=== PATIENT | male | born 1955 | race African-American/Black ===

== ENCOUNTER 2016-08-04 09:37 | Inpatient (IN) | payer MEDICAID ==
[2016-08-04] MEDS ORDERED: LISINOPRIL 10 MG TABLET PO ONE (11:01)
[2016-08-04] MEDS ORDERED: HYDROCHLOROTHIAZIDE 25 MG TABLET PO ONE (11:01)
[2016-08-04] MEDS ORDERED: IPRATROPIUM/ALBUTEROL 0.5-2.5 MG/3 ML AMPUL NEB ONE (11:01)
[2016-08-04 11:31] LABS: ABSOLUTE BASOPHILS # (AUTO) 0.1 10^3/uL (0.0-0.2); ABSOLUTE LYMPHOCYTES (AUTO) 1.1 10^3/uL (0.5-4.7); ABSOLUTE MONOCYTES (AUTO) 0.5 10^3/uL (0.1-1.4); BASOPHILS % (AUTO) 1.2 % (0-2); EOSINOPHILS % (AUTO) 0.2 % (0-6); HEMOGLOBIN 14.3 g/dL (13.5-17.0); HGB HCT DIFFERENCE -1.1; LYMPHOCYTES % (AUTO) 19.2 % (13-45); MEAN CORPUSCULAR HEMOGLOBIN 30.3 pg (27.0-33.4); MEAN CORPUSCULAR HGB CONC 32.5 g/dL (32.0-36.0); MEAN CORPUSCULAR VOLUME 93 fl (80-97); MONOCYTES % (AUTO) 9.4 % (3-13); RED BLOOD COUNT 4.73 10^6/uL (4.35-5.55); WHITE BLOOD COUNT 5.7 10^3/uL (4.0-10.5)
[2016-08-04 11:37] LABS: PROTHROMBIN TIME 13.4 SEC (11.4-15.4)
[2016-08-04 11:49] LABS: ALANINE AMINOTRANSFERASE 29 U/L (21-72); ALBUMIN 4.3 g/dL (3.5-5.0); ALKALINE PHOSPHATASE 88 U/L (38-126); ANION GAP 13 (5-19); ASPARTATE AMINO TRANSFERASE 29 U/L (17-59); BILIRUBIN,DIRECT 0.3 mg/dL (0.0-0.4); BILIRUBIN,TOTAL 0.8 mg/dL (0.2-1.3); BLOOD UREA NITROGEN 17 mg/dL (7-20); CALCIUM 9.3 mg/dL (8.4-10.2); CARBON DIOXIDE 34 mmol/L (22-30); CHLORIDE 97 mmol/L (98-107); CREATINE KINASE 107 U/L (55-170); CREATININE RESULT 1.32 mg/dL (0.52-1.25); GLUCOSE 106 mg/dL (75-110); LIPASE 23.6 U/L (23-300); POTASSIUM 3.7 mmol/L (3.6-5.0); SODIUM 143.7 mmol/L (137-145)
--- NOTE | 2016-08-04 11:55 | RADIOLOGY REPORT (SQ) ---
EXAM DESCRIPTION: CHEST PA/LAT COMPLETED DATE/TIME: 08/04/2016 11:44 am REASON FOR STUDY: cough COMPARISON: 04/06/2012 EXAM PARAMETERS: NUMBER OF VIEWS: two views TECHNIQUE: Digital Frontal and Lateral radiographic views of the chest acquired. RADIATION DOSE: NA LIMITATIONS: none FINDINGS: LUNGS AND PLEURA: Interstitial changes with Hannah B-lines. Fluid in the fissures. Perih ilar haziness. MEDIASTINUM AND HILAR STRUCTURES: No masses or contour abnormalities. HEART AND VASCULAR STRUCTURES: Heart upper normal in size. Ectatic aorta. BONES: No acute findings. HARDWARE: None in the chest. OTHER: No other significant finding. IMPRESSION: Interstitial pulmonary edema. TECHNICAL DOCUMENTATION: JOB ID: [id number] [employer]- All Rights Reserved
[2016-08-04 12:01] LABS: CREATINE KINASE MB 1.24 ng/mL (<4.55)
[2016-08-04 12:02] LABS: TROPONIN I 0.057 ng/mL
[2016-08-04] MEDS ORDERED: ASPIRIN 325 MG TABLET PO ONE (12:05)
--- NOTE | 2016-08-04 12:13 | ER Document Report ---
ED Medical Screen (RME) - General Chief Complaint: Abdominal Pain Stated Complaint: ABDOMINAL PAIN/COUGH Time Seen by Provider: 08/04/16 10:57 TRAVEL OUTSIDE OF THE [place] IN LAST 30 DAYS: No - HPI Patient complains to provider of: Coughing epigastric pain Notes: 08/04/16 12:10 Patient presents today with coughing epigastric pain. Patient also states elevated blood pressure. Patient states he has been without blood pressure medications for "quite some time." Denies chest pain - Related Data Allergies/Adverse Reactions: No Known Allergies Allergy (Verified 08/04/16 09:41) Past Medical History - Social History Frequency of alcohol use: None Drug Abuse: None - Past Medical History Cardiac Medical History: Reports: Hx Hypertension - stopped medication 2007 could not afford f/u appt or medication Pulmonary Medical History: Denies: Hx Asthma Renal/ Medical History: Denies: Hx Peritoneal Dialysis Musculoskeltal Medical History: Reports Hx Arthritis Past Surgical History: Reports: Hx Orthopedic Surgery - Immunizations Immunizations up to date: Yes Hx Diphtheria, Pertussis, Tetanus Vaccination: No Review of Systems - Review of Systems Constitutional: No symptoms reported EENT: No symptoms reported Cardiovascular: No symptoms reported Respiratory: Cough Gastrointestinal: Abdominal pain Genitourinary: No symptoms reported Male Genitourinary: No symptoms reported Musculoskeletal: No symptoms reported Skin: No symptoms reported Hematologic/Lymphatic: No symptoms reported Neurological/Psychological: No symptoms reported Physical Exam - Vital signs Vitals: Temp Pulse Resp BP Pulse Ox 98.2 F 97 20 213/117 H 100 08/04/16 09:41 08/04/16 09:41 08/04/16 09:41 08/04/16 09:41 08/04/16 09:41 Interpretation: Normal - General General appearance: Appears well, Alert - HEENT Head: Normocephalic, Atraumatic Eyes: Normal Pupils: PERRL - Respiratory Respiratory status: No respiratory distress Chest status: Nontender Breath sounds: Wheezing Chest palpation: Normal - Cardiovascular Rhythm: Regular Heart sounds: Normal auscultation Murmur: No - Abdominal Inspection: Normal Distension: No distension Bowel sounds: Normal Tenderness: Nontender Organomegaly: No organomegaly - Back Back: Normal, Nontender - Extremities General upper extremity: Normal inspection, Nontender, Normal color, Normal ROM , Normal temperature General lower extremity: Normal inspection, Nontender, Normal color, Normal ROM , Normal temperature, Normal weight bearing. No: Eunice's sign - Neurological Neuro grossly intact: Yes Cognition: Normal Orientation: AAOx4 Nicola Coma Scale Eye Opening: Spontaneous [place] Coma Scale Verbal: Oriented [place] Coma Scale Motor: Obeys Commands Nicola Coma Scale Total: 15 Speech: Normal Motor strength normal: LUE, RUE, LLE, RLE Sensory: Normal - Psychological Associated symptoms: Normal affect, Normal mood - Skin Skin Temperature: Warm Skin Moisture: Dry Skin Color: Normal Course - Re-evaluation Re-evalutation: 08/04/16 12:12 Patient was given his lisinopril hydrochlorothiazide. Prescribed. Chest x-ray shows curly B lines possible new onset of CHF. Patient does have mildly elevated troponin will send to the meantime for further evaluation. Notified by nursing staff upon movement that the patient was hypoxic. Patient seem to be asymptomatic this is new compared to his arrival oxygen saturation of 100%. - Vital Signs Vital signs: Temp Pulse Resp BP Pulse Ox 98.4 F 85 22 H 204/112 H 86 L 08/04/16 12:03 08/04/16 12:03 08/04/16 12:03 08/04/16 12:03 08/04/16 12:03 - Laboratory Result Diagrams: 08/04/16 11:16 08/04/16 11:16 Laboratory results interpreted by me: 08/04/16 08/04/16 11:16 11:16 RDW 15.0 H Plt Count 129 L Chloride 97 L Carbon Dioxide 34 H Creatinine 1.32 H Est GFR (Non-Af Amer) 55 L
[2016-08-04] MEDS ORDERED: NITROGLYCERIN 2% OINTMENT 1 GM PACKET TP ONE (12:31)
--- NOTE | 2016-08-04 12:31 | ER Document Report ---
ED Cardiac - General Chief Complaint: Abdominal Pain Stated Complaint: ABDOMINAL PAIN/COUGH Time Seen by Provider: 08/04/16 10:57 Mode of Arrival: Ambulatory Information source: Patient TRAVEL OUTSIDE OF THE [place] IN LAST 30 DAYS: No - HPI Patient complains to provider of: Shortness of breath Was the onset of pain: Gradual When did pain begin: SEVERAL DAYS Is the pain a: New problem Chest pain location: Other - XIPHOID AREA Quality of pain: Pressure Chest pain radiation location: None Severity now: None Severity at worst: Mild Chest pain precipitating factors: Physical Exertion - Related Data Allergies/Adverse Reactions: No Known Allergies Allergy (Verified 08/04/16 09:41) Past Medical History - Social History Smoking Status: Current Every Day Smoker Cigarette use (# per day): Yes Chew tobacco use (# tins/day): No Frequency of alcohol use: None Drug Abuse: None Lives with: Family Family History: Reviewed & Not Pertinent Patient has suicidal ideation: No Patient has homicidal ideation: No - Past Medical History Cardiac Medical History: Reports: Hx Hypertension - stopped medication 2007 could not afford f/u appt or medication Pulmonary Medical History: Denies: Hx Asthma Renal/ Medical History: Denies: Hx Peritoneal Dialysis Musculoskeltal Medical History: Reports Hx Arthritis Past Surgical History: Reports: Hx Orthopedic Surgery - Immunizations Immunizations up to date: Yes Hx Diphtheria, Pertussis, Tetanus Vaccination: No Physical Exam - Vital signs Vitals: Temp Pulse Resp BP Pulse Ox 98.2 F 97 20 213/117 H 100 08/04/16 09:41 08/04/16 09:41 08/04/16 09:41 08/04/16 09:41 08/04/16 09:41 Interpretation: Hypertensive - General General appearance: Appears well, Alert In distress: None - HEENT Head: Normocephalic Eyes: Normal Conjunctiva: Normal Ears: Normal Nasal: Normal Mouth/Lips: Normal Mucous membranes: Normal Neck: Normal - Respiratory Respiratory status: No respiratory distress Chest status: Nontender Breath sounds: Rales - FEW, BIBASILAR - Cardiovascular Rhythm: Regular Heart sounds: Normal auscultation Murmur: No - Abdominal Inspection: Normal Distension: No distension Bowel sounds: Normal Tenderness: Nontender - Extremities General upper extremity: Normal inspection General lower extremity: Normal inspection. No: Edema - Neurological Neuro grossly intact: Yes Cognition: Normal Orientation: AAOx4 - Psychological Associated symptoms: Normal affect, Normal mood - Skin Skin Temperature: Warm Skin Moisture: Dry Skin Color: Normal Skin Turgor: Elastic Course - Vital Signs Vital signs: Temp Pulse Resp BP Pulse Ox 98.4 F 85 12 216/126 H 90 L 08/04/16 12:03 08/04/16 12:03 08/04/16 12:48 08/04/16 12:48 08/04/16 12:51 - Laboratory Result Diagrams: 08/04/16 11:16 08/04/16 11:16 Laboratory results interpreted by me: 08/04/16 08/04/16 11:16 11:16 RDW 15.0 H Plt Count 129 L Chloride 97 L Carbon Dioxide 34 H Creatinine 1.32 H Est GFR (Non-Af Amer) 55 L - Diagnostic Test Radiology reviewed: Image reviewed, Reports reviewed - EKG Interpretation by Me EKG shows normal: Sinus rhythm. abnormal: QRS Complexes - RVH VOLTAGE, ST-T Waves - BORDERLINE LONG QT Rate: Normal Rhythm: NSR Hale/QRS: RBBB, LAHB/LAFB When compared to previous EKG there are: Previous EKG unavailable - Consults DR. MARTINEZ Time consulted: 13:45 Consulted provider: will come to ER Discharge - Discharge Clinical Impression: Hypertensive urgency Condition: Stable Disposition: ADMITTED INPATIENT Admitting Provider: Hospitalist Unit Admitted: ICU
[2016-08-04] MEDS ORDERED: LABETALOL HCL INJ 20 MG/4 ML DISP.SYRIN IV ONE ×2 (12:39→13:10)
[2016-08-04] MEDS ORDERED: GUAIFENESIN SYRP 200 MG/10 ML UDC PO PRN (14:34)
[2016-08-04] MEDS ORDERED: ALBUTEROL SULFATE HFA (90 MCG/PUFF) 200 PUFF/8.5 GM MDI IH PRN (14:34)
[2016-08-04] MEDS ORDERED: ENOXAPARIN SODIUM INJ 30 MG/0.3 ML DISP.SYRIN SUBCUT ONE (15:00)
[2016-08-04] MEDS ORDERED: METHYLPREDNISOLONE INJ 40 MG/1 ML SDV IV ONE (15:00)
[2016-08-04 15:10] LABS: URINE BARBITURATES SCREEN NEGATIVE; URINE METHADONE SCREEN NEGATIVE; URINE OPIATES LOW NEGATIVE; URINE PHENCYCLIDINE SCREEN NEGATIVE
[2016-08-04 15:16] LABS: APPEARANCE,URINE CLEAR; BILIRUBIN,URINE NEGATIVE (NEGATIVE); GLUCOSE, URINE NEGATIVE (NEGATIVE); KETONES,URINE NEGATIVE (NEGATIVE); LEUKOCYTE ESTERASE,URINE NEGATIVE (NEGATIVE); NITRITE,URINE NEGATIVE (NEGATIVE); PROTEIN,URINE NEGATIVE (NEGATIVE); URINE SPECIFIC GRAVITY 1.008; UROBILINOGEN,URINE NEGATIVE mg/dL (<2.0)
[2016-08-04 15:21] LABS: BACTERIA,URINE TRACE /HPF; WBC,URINE 0-1 /HPF
--- NOTE | 2016-08-04 15:38 | RADIOLOGY REPORT (SQ) ---
EXAM DESCRIPTION: CT HEAD WITHOUT COMPLETED DATE/TIME: 08/04/2016 3:17 pm REASON FOR STUDY: hypertensive emergency with headache COMPARISON: None. TECHNIQUE: Axial images acquired through the brain without intravenous contrast. Images reviewed wi th bone, brain and subdural windows. Images stored on PACS. All CT scanners at this facility use dose modulation, iterative reconstruction, and/or weight based d osing when appropriate to reduce radiation dose to as low as reasonably achievable (ALARA). [facility]: Dose Right [facility]: CareDose [facility]: Dose Right [facility]: Teradose 4D [facility]: [employer] RADIATION DOSE: Up-to-date CT equipment and radiation dose reduction techniques were employed. CTDIv ol: 64.6 mGy. DLP: 1163 mGy-cm. mGy. LIMITATIONS: None. FINDINGS: VENTRICLES: Normal size and contour. CEREBRUM: No masses. No hemorrhage. No midline shift. Normal hogan/white matter differentiation. N o evidence for acute infarction. CEREBELLUM: No masses. No hemorrhage. No alteration of density. No evidence for acute infarction. EXTRAAXIAL SPACES: No fluid collections. No masses. ORBITS AND GLOBE: No intra- or extraconal masses. Normal contour of globe without masses. CALVARIUM: No fracture. PARANASAL SINUSES: Chronic left maxillary sinus disease. SOFT TISSUES: No mass or hematoma. OTHER: No other significant finding. IMPRESSION: No acute intracranial process. Chronic left maxillary sinus disease. TECHNICAL DOCUMENTATION: JOB ID: [id number] Quality ID # [id number]: Final reports with documentation of one or more dose reduction techniques (e.g., Au tomated exposure control, adjustment of the mA and/or kV according to patient size, use of iterative reconstruction technique) 2010 [employer]- All Rights Reserved
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
[2016-08-04] MEDS: HYDRALAZINE HCL INJ/PF 20 MG/1 ML SDV IV PRN (16:42)
[2016-08-04] MEDS: ACETAMINOPHEN 325 MG TABLET PO PRN (16:42)
[2016-08-04] MEDS: NYSTATIN 500000 UNIT/5 ML UDCUP PO SCH ×2 (17:26→21:48)
--- NOTE | 2016-08-04 17:29 | EKG REPORT ---
SEVERITY:- ABNORMAL ECG - SINUS RHYTHM INCOMPLETE RBBB AND LAFB CONSIDER RIGHT VENTRICULAR HYPERTROPHY BORDERLINE PROLONGED QT INTERVAL : Confirmed by: Pierre Tinoco 04-Aug-2016 17:28:51
[2016-08-04] MEDS: IPRATROPIUM/ALBUTEROL 0.5-2.5 MG/3 ML AMPUL NEB SCH (20:32)
[2016-08-04] MEDS: METHYLPREDNISOLONE INJ 40 MG/1 ML SDV IV SCH (21:46)
[2016-08-04] MEDS: GUAIFENESIN 600 MG TABLET.SA PO SCH (21:46)
[2016-08-04] MEDS: LISINOPRIL 10 MG TABLET PO SCH (21:48)
[2016-08-05 04:00] LABS: HEMOGLOBIN 13.1 g/dL (13.5-17.0); HGB HCT DIFFERENCE -0.7; MEAN CORPUSCULAR HEMOGLOBIN 30.1 pg (27.0-33.4); MEAN CORPUSCULAR HGB CONC 32.9 g/dL (32.0-36.0); MEAN CORPUSCULAR VOLUME 92 fl (80-97); RED BLOOD COUNT 4.36 10^6/uL (4.35-5.55); RED CELL DISTRIBUTION WIDTH 14.5 % (11.5-14.0); WHITE BLOOD COUNT 3.3 10^3/uL (4.0-10.5)
[2016-08-05 04:04] LABS: ANION GAP 10 (5-19); BLOOD UREA NITROGEN 19 mg/dL (7-20); CALCIUM 9.2 mg/dL (8.4-10.2); CARBON DIOXIDE 34 mmol/L (22-30); CHLORIDE 93 mmol/L (98-107); CREATININE RESULT 1.28 mg/dL (0.52-1.25); GLUCOSE 141 mg/dL (75-110); POTASSIUM 3.3 mmol/L (3.6-5.0); SODIUM 137.3 mmol/L (137-145)
[2016-08-05 04:13] LABS: BAND NEUTROPHILS % (MANUAL) 2 % (3-5); BASOPHILS % (MANUAL) 0 % (0-2); EOSINOPHILS % (MANUAL) 0 % (0-6); LYMPHOCYTES % (MANUAL) 20 % (13-45); TOTAL CELLS COUNTED 100
[2016-08-05 04:15] LABS: ANISOCYTOSIS SLIGHT; PLATELET CLUMPS PRESENT; POIKILOCYTOSIS SLIGHT
[2016-08-05] MEDS: METHYLPREDNISOLONE INJ 40 MG/1 ML SDV IV SCH ×3 (05:51→22:39)
[2016-08-05] MEDS: HYDRALAZINE HCL INJ/PF 20 MG/1 ML SDV IV PRN ×2 (05:57→13:12)
[2016-08-05] MEDS: LISINOPRIL 10 MG TABLET PO SCH (06:44)
[2016-08-05] MEDS: IPRATROPIUM/ALBUTEROL 0.5-2.5 MG/3 ML AMPUL NEB SCH ×3 (08:27→20:25)
[2016-08-05] MEDS: ENOXAPARIN SODIUM INJ 30 MG/0.3 ML DISP.SYRIN SUBCUT SCH (09:59)
[2016-08-05] MEDS: FLUTICASONE NASAL SPRAY 50 MCG/SPRY 120 SPRAY/16 GM NASL SCH ×2 (10:00→22:39)
[2016-08-05] MEDS: HYDROCHLOROTHIAZIDE 25 MG TABLET PO SCH (10:01)
[2016-08-05] MEDS: GUAIFENESIN 600 MG TABLET.SA PO SCH ×2 (10:02→22:40)
[2016-08-05] MEDS: NYSTATIN 500000 UNIT/5 ML UDCUP PO SCH ×4 (10:02→22:40)
[2016-08-05 10:25] LABS: CHOLESTEROL 187.45 mg/dL (0-200); Direct HDL 47 mg/dL (>40); TRIGLYCERIDES 72 mg/dL (<150)
[2016-08-05 10:36] LABS: DIRECT LDL 110 mg/dL (<100)
[2016-08-05] MEDS ORDERED: BENZONATATE 100 MG CAPSULE PO PRN (10:54)
[2016-08-05] MEDS ORDERED: LISINOPRIL 10 MG TABLET PO ONE (11:30)
--- NOTE | 2016-08-05 11:37 | RADIOLOGY REPORT (SQ) ---
EXAM DESCRIPTION: CHEST PA/LAT COMPLETED DATE/TIME: 08/05/2016 11:17 am REASON FOR STUDY: pna COMPARISON: 08/04/2016 EXAM PARAMETERS: NUMBER OF VIEWS: two views TECHNIQUE: Digital Frontal and Lateral radiographic views of the chest acquired. RADIATION DOSE: NA LIMITATIONS: none FINDINGS: LUNGS AND PLEURA: No opacities, masses or pneumothorax. No pleural effusion. MEDIASTINUM AND HILAR STRUCTURES: No masses or contour abnormalities. HEART AND VASCULAR STRUCTURES: Heart normal size. No evidence for failure. BONES: No acute findings. HARDWARE: None in the chest. OTHER: No other significant finding. IMPRESSION: NO SIGNIFICANT RADIOGRAPHIC FINDING IN THE CHEST. TECHNICAL DOCUMENTATION: JOB ID: [id number] [employer]- All Rights Reserved
[2016-08-05] MEDS ORDERED: FUROSEMIDE 20 MG TABLET PO ONE (12:00)
[2016-08-05] MEDS ORDERED: AMLODIPINE BESYLATE 10 MG TABLET PO ONE (12:00)
--- NOTE | 2016-08-05 15:04 | PDOC PROGRESS REPORT ---
Subjective Progress Note for:: 08/05/16 Subjective:: Patient complains of cough. He feels like he can't cough anything up. Patient reports that he feels better than yesterday. He denies chest pain, headache, diplopia, nausea, vomiting, diarrhea, constipation, focal weakness. Physical Exam Vital Signs: Temp Pulse Resp BP Pulse Ox 97.7 F 77 19 190/90 H 100 08/05/16 04:49 08/05/16 07:00 08/05/16 04:49 08/05/16 06:35 08/05/16 04:49 Intake & Output 08/04/16 08/05/16 08/06/16 06:59 06:59 06:59 Intake Total 417 Balance 417 Weight 67.4 kg Exam: GENERAL: A+Ox3, NAD HEENT: Conjunctiva clear, nonicteric, moist mucous membranes, no JVD, midline trachea RESPIRATORY: Crackles bilateral bases, occasional rhonchi CARDIAC: Regular rate and rhythm, no gallops/rubs; +SM ABDOMEN: Soft, nondistended, NTTP, positive bowel sounds, no rebound, no guarding EXTREMETIES: no cyanosis, edema; mild clubbing NEUROLOGIC: Alert, oriented to person/place, CN's grossly intact, no focal deficits; mild cognitive impairment SKIN: No rash, lesion PSYCH: Normal mood, normal affect Results Laboratory Results: 08/05/16 03:40 08/05/16 03:40 08/04/16 08/05/16 08/05/16 14:50 03:40 03:40 WBC 3.3 L RBC 4.36 Hgb 13.1 L Hct 40.0 MCV 92 MCH 30.1 MCHC 32.9 RDW 14.5 H Plt Count 117 L Seg Neutrophils % Not Reportable Lymphocytes % Not Reportable Monocytes % Not Reportable Eosinophils % Not Reportable Basophils % Not Reportable Absolute Neutrophils Not Reportable Absolute Lymphocytes Not Reportable Absolute Monocytes Not Reportable Absolute Eosinophils Not Reportable Absolute Basophils Not Reportable Sodium 137.3 Potassium 3.3 L Chloride 93 L Carbon Dioxide 34 H Anion Gap 10 BUN 19 Creatinine 1.28 H Est GFR ( Amer) > 60 Est GFR (Non-Af Amer) 57 L Glucose 141 H Calcium 9.2 Urine Color STRAW Urine Appearance CLEAR Urine pH 6.0 Ur Specific [place] 1.008 Urine Protein NEGATIVE Urine Glucose (UA) NEGATIVE Urine Ketones NEGATIVE Urine Blood MODERATE H Urine Nitrite NEGATIVE Ur Leukocyte Esterase NEGATIVE Ur Squamous Epith Cells RARE 08/04/16 08/04/16 08/05/16 15:38 21:49 03:40 Troponin I 0.065 0.060 0.046 Impressions: Head CT 08/04/16 00:00 IMPRESSION: No acute intracranial process. Chronic left maxillary sinus disease. Chest X-Ray 08/04/16 11:00 IMPRESSION: Interstitial pulmonary edema. Assessment & Plan - Diagnosis (1) COPD with exacerbation Is this a current diagnosis for this admission?: YesPlan: Scheduled nebulized treatments Continue Solumedrol Azithromycin Sputum Culture pending Inspo and flutter (2) Hypertensive emergency without congestive heart failure Is this a current diagnosis for this admission?: YesPlan: Suspect long standing untreated hypertension. 2g sodium restricted diet. Patient education for HTN. Cardiac enzymes are indeterminate. Hydralazine IV prn SBP>180. Monitor on telemetry Suspect subclavian steal as patient has a mildly atrophic right arm and a 30 point difference in blood pressure. Generic Name Dose Route Start Last Admin Trade Name Freq PRN Reason Stop Dose Admin Hydralazine HCl 10 mg 08/04/16 14:50 08/05/16 13:12 Apresoline Inj/Pf 20 Mg/1 Ml Sdv IV 09/03/16 14:49 10 mg Q4HP PRN sbp>165 Amlodipine Besylate 10 mg 08/06/16 10:00 Norvasc 10 Mg Tablet PO 09/05/16 09:59 DAILY JESSICA Lisinopril 40 mg 08/06/16 10:00 Prinivil 10 Mg Tablet PO 09/05/16 09:59 DAILY JESSICA Hydrochlorothiazide 25 mg 08/05/16 10:00 08/05/16 10:01 Hydrodiuril 25 Mg Tablet PO 09/04/16 09:59 25 mg DAILY JESSICA (3) Acute hypoxemic respiratory failure Is this a current diagnosis for this admission?: YesPlan: Oxygen to maintain saturation greater than 93% (4) Tobacco abuse Is this a current diagnosis for this admission?: YesPlan: Encourage cessation Offer nicotine patch (5) Headache Qualifiers: Headache type: unspecified Headache chronicity pattern: acute headache Intractability: not intractable Qualified Code(s): R51 - Headache Is this a current diagnosis for this admission?: YesPlan: Resolved He had a head is negative for acute in infarction. Headache improved tylenol prn (6) Oral candidiasis Is this a current diagnosis for this admission?: YesPlan: Improving on nystatin (7) Stage 3 chronic kidney disease due to benign hypertension Is this a current diagnosis for this admission?: YesPlan: Renally adjust medications. Consistent with creatinine over the past 4 years (8) Hyperlipidemia LDL goal <100 Is this a current diagnosis for this admission?: YesPlan: Patient on Zocor 10 mg p.o. nightly (9) Prediabetes Is this a current diagnosis for this admission?: YesPlan: Have counseled patient on improving diet. Recommend repeat labs in 3-6 months. - Time Time Spent with patient: 25-34 minutes
[2016-08-05] MEDS ORDERED: LISINOPRIL 10 MG TABLET PO SCH (18:00)
[2016-08-05] MEDS: SIMVASTATIN 10 MG TABLET PO SCH (22:40)
[2016-08-06] MEDS: METHYLPREDNISOLONE INJ 40 MG/1 ML SDV IV SCH ×3 (05:31→21:11)
[2016-08-06 07:58] LABS: ABSOLUTE LYMPHOCYTES (AUTO) 0.7 10^3/uL (0.5-4.7); ABSOLUTE MONOCYTES (AUTO) 0.3 10^3/uL (0.1-1.4); ABSOLUTE NEUT (AUTO) 5.8 10^3/uL (1.7-8.2); BASOPHILS % (AUTO) 0.6 % (0-2); HEMATOCRIT 45.5 % (37.9-51.0); HGB HCT DIFFERENCE -0.5; LYMPHOCYTES % (AUTO) 10.1 % (13-45); MEAN CORPUSCULAR HEMOGLOBIN 30.4 pg (27.0-33.4); MEAN CORPUSCULAR HGB CONC 32.9 g/dL (32.0-36.0); MEAN CORPUSCULAR VOLUME 92 fl (80-97); MONOCYTES % (AUTO) 3.7 % (3-13); RED BLOOD COUNT 4.92 10^6/uL (4.35-5.55); RED CELL DISTRIBUTION WIDTH 14.4 % (11.5-14.0); SEGMENTED NEUTROPHILS % (AUTO) 85.6 % (42-78)
[2016-08-06 08:03] LABS: WHITE BLOOD COUNT 6.8 10^3/uL (4.0-10.5)
[2016-08-06] MEDS: ACETAMINOPHEN 325 MG TABLET PO PRN (08:13)
[2016-08-06] MEDS: HYDRALAZINE HCL INJ/PF 20 MG/1 ML SDV IV PRN (08:14)
[2016-08-06 08:26] LABS: ANION GAP 14 (5-19); BLOOD UREA NITROGEN 25 mg/dL (7-20); CALCIUM 9.9 mg/dL (8.4-10.2); CARBON DIOXIDE 38 mmol/L (22-30); CHLORIDE 84 mmol/L (98-107); CREATININE RESULT 1.51 mg/dL (0.52-1.25); GLUCOSE 144 mg/dL (75-110); POTASSIUM 3.5 mmol/L (3.6-5.0); SODIUM 136.2 mmol/L (137-145)
[2016-08-06] MEDS: IPRATROPIUM/ALBUTEROL 0.5-2.5 MG/3 ML AMPUL NEB SCH ×3 (08:28→20:49)
[2016-08-06] MEDS: NYSTATIN 500000 UNIT/5 ML UDCUP PO SCH ×4 (09:12→21:11)
[2016-08-06] MEDS: FLUTICASONE NASAL SPRAY 50 MCG/SPRY 120 SPRAY/16 GM NASL SCH ×2 (09:12→21:11)
[2016-08-06] MEDS: HYDROCHLOROTHIAZIDE 25 MG TABLET PO SCH (09:12)
[2016-08-06] MEDS: POTASSIUM CHLORIDE 10 MEQ TABLET.SA PO SCH (09:12)
[2016-08-06] MEDS: GUAIFENESIN 600 MG TABLET.SA PO SCH ×2 (09:12→21:11)
[2016-08-06] MEDS: AMLODIPINE BESYLATE 10 MG TABLET PO SCH (09:12)
[2016-08-06] MEDS: LISINOPRIL 10 MG TABLET PO SCH (09:12)
[2016-08-06] MEDS: ENOXAPARIN SODIUM INJ 30 MG/0.3 ML DISP.SYRIN SUBCUT SCH (09:12)
[2016-08-06] MEDS ORDERED: METHYLPREDNISOLONE INJ 40 MG/1 ML SDV IV ONE (11:30)
[2016-08-06] MEDS ORDERED: CARVEDILOL 12.5 MG TABLET PO ONE (11:30)
--- NOTE | 2016-08-06 14:19 | XCELERA REPORT ---
[address] [address] Transthoracic Echocardiogram Report Name: PANKAJ SORTO Age: 61 yrs Gender: Male : 1955 Patient Status: Inpatient Patient Location: [id number]\317\[id number] Study Date: 08/06/2016 11:26 AM Height: 67 in Weight: 148 lb BSA: 1.8 m2 Procedure: A two-dimensional transthoracic echocardiogram with color flow and Doppler was performed. Study Quality: Fair. Reason For Study: HYPERTENSION History: HYPERTENSION. Ordering Physician: CARLA HAILE Performed By: Katya Gandhi Interpretation Summary The left ventricle is normal in size. Mild to moderate KIARA , but no 'JH' or LVOT obstruction.Hence no IHSS. LV EF is 65% Left ventricular systolic function is normal. Doppler measurements suggest impaired left ventricular relaxation, which is associated with grade I/IV or mild diastolic dysfunction The left ventricular wall motion is normal. There is no thrombus. There is no ventricular septal defect visualized. The right ventricle is grossly normal size. The left atrial size is normal. The interatrial septum is intact with no evidence for an atrial septal defect. There is no mitral valve stenosis. There is no evidence of mitral valve prolapse. There is no vegetation seen on the mitral valve. There is no mitral regurgitation noted. There is no aortic valvular vegetation. There is no aortic valve stenosis There is no LVOT obstruction. There is a trace amount of aortic regurgitation There is no tricuspid stenosis. There is a trace amount of tricuspid regurgitation Unablle to calculate RVSP due to insufficient TR jet. The aortic root is mildly dilated There is no pericardial effusion. MMode/2D Measurements \T\ Calculations RVDd: 3.0 cm LVIDd: 4.6 cmFS: 37.3 % Ao root diam: 3.9 cm IVSd: 1.3 cm LVIDs: 2.9 cmEDV(Teich): 96.0 ml LVPWd: 1.4 cmESV(Teich): 31.4 ml Ao root area: 11.9 cm2 EF(Teich): 67.3 % LA dimension: 3.7 cm LVOT diam: 2.3 cm LVOT area: 4.3 cm2 Doppler Measurements \T\ Calculations MV E max yasmine: MV P1/2t max yasmine: Ao V2 max: LV V1 max P.2 cm/sec 65.2 cm/sec 162.6 cm/sec 6.1 mmHg MV A max yasmine: MV P1/2t: 55.3 msec Ao max PG: LV V1 max: 97.7 cm/sec MVA(P1/2t): 4.0 cm2 10.6 mmHg 123.4 cm/sec MV E/A: 0.67 MV dec slope: REY(V,D): 3.2 cm2 345.3 cm/sec2 PA V2 max: 108.1 cm/sec PA max P.7 mmHg Left Ventricle The left ventricle is normal in size. Mild to moderate KIARA , but no 'JH' or LVOT obstruction.Hence no IHSS. LV EF is 65%. Left ventricular systolic function is normal. Doppler measurements suggest impaired left ventricular relaxation, which is associated with grade I/IV or mild diastolic dysfunction. The left ventricular wall motion is normal. There is no thrombus. There is no ventricular septal defect visualized. Right Ventricle The right ventricle is grossly normal size. Atria The right atrium is normal. The left atrial size is normal. The interatrial septum is intact with no evidence for an atrial septal defect. Mitral Valve There is no evidence of mitral valve prolapse. There is no vegetation seen on the mitral valve. There is no mitral valve stenosis. There is no mitral regurgitation noted. Aortic Valve There is no aortic valvular vegetation. There is no aortic valve stenosis. There is no LVOT obstruction. There is a trace amount of aortic regurgitation. Tricuspid Valve There is no tricuspid stenosis. There is a trace amount of tricuspid regurgitation. Unablle to calculate RVSP due to insufficient TR jet. Pulmonic Valve There is no pulmonic valvular stenosis. There is no pulmonic valvular regurgitation. Great Vessels The aortic root is mildly dilated. Effusions There is no pericardial effusion. : CALRA HAILE > Celeste Resendez
--- NOTE | 2016-08-06 15:37 | PDOC PROGRESS REPORT ---
Subjective Progress Note for:: 08/06/16 Physical Exam Vital Signs: Temp Pulse Resp BP Pulse Ox 97.8 F 87 17 159/91 H 98 08/06/16 04:35 08/06/16 07:00 08/06/16 04:35 08/06/16 04:35 08/06/16 04:35 Intake & Output 08/05/16 08/06/16 08/07/16 06:59 06:59 06:59 Intake Total 417 757 Balance 417 757 Weight 67.4 kg 67.5 kg Exam: GENERAL: A+Ox3, NAD HEENT: Conjunctiva clear, nonicteric, moist mucous membranes, no JVD, midline trachea RESPIRATORY: Bilateral end expiratory wheezes, crackles CARDIAC: Regular rate and rhythm, no gallops/rubs; +SM ABDOMEN: Soft, nondistended, NTTP, positive bowel sounds, no rebound, no guarding EXTREMETIES: no cyanosis, edema; mild clubbing NEUROLOGIC: Alert, oriented to person/place, CN's grossly intact, no focal deficits; mild cognitive impairment SKIN: No rash, lesion PSYCH: Normal mood, normal affect Results Laboratory Results: 08/05/16 03:40 08/05/16 03:40 08/05/16 03:40 Triglycerides 72 Cholesterol 187.45 LDL Cholesterol Direct 110 H VLDL Cholesterol 14.0 HDL Cholesterol 47 08/04/16 08/04/16 08/05/16 15:38 21:49 03:40 Troponin I 0.065 0.060 0.046 Impressions: Head CT 08/04/16 00:00 IMPRESSION: No acute intracranial process. Chronic left maxillary sinus disease. Chest X-Ray 08/05/16 00:00 IMPRESSION: NO SIGNIFICANT RADIOGRAPHIC FINDING IN THE CHEST. Assessment & Plan - Diagnosis (1) COPD with exacerbation Is this a current diagnosis for this admission?: YesPlan: Scheduled nebulized treatments Cannot tolerate decrease and Solu-Medrol yesterday. He continues to be quite short of breath particularly upon ambulation. Continue Solumedrol IV and give additional 40 mg IV now. Azithromycin #3 Sputum Culture pending Inspo and flutter (2) Hypertensive emergency without congestive heart failure Is this a current diagnosis for this admission?: YesPlan: Improved control. Currently on Norvasc, hydrochlorothiazide, lisinopril, and will add Coreg today. Suspect long standing untreated hypertension. 2g sodium restricted diet. Patient education for HTN. Cardiac enzymes are indeterminate. Hydralazine IV prn SBP>165. Monitor on telemetry Suspect subclavian steal as patient has a mildly atrophic right arm and a 30 point difference in blood pressure. (3) Acute hypoxemic respiratory failure Is this a current diagnosis for this admission?: YesPlan: Oxygen to maintain saturation greater than 93% (4) Tobacco abuse Is this a current diagnosis for this admission?: YesPlan: Encourage cessation Offer nicotine patch (5) Headache Qualifiers: Headache type: unspecified Headache chronicity pattern: acute headache Intractability: not intractable Qualified Code(s): R51 - Headache Is this a current diagnosis for this admission?: YesPlan: Resolved He had a head is negative for acute in infarction. Headache improved tylenol prn (6) Oral candidiasis Is this a current diagnosis for this admission?: YesPlan: Improving on nystatin (7) Stage 3 chronic kidney disease due to benign hypertension Is this a current diagnosis for this admission?: YesPlan: Renally adjust medications. Consistent with creatinine over the past 4 years (8) Hyperlipidemia LDL goal <100 Is this a current diagnosis for this admission?: YesPlan: Patient on Zocor 10 mg p.o. nightly. CPK given patient's report of difficulty ambulating to the bathroom. (9) Prediabetes Is this a current diagnosis for this admission?: YesPlan: Have counseled patient on improving diet. Recommend repeat labs in 3-6 months. - Time Time Spent with patient: 25-34 minutes Medications reviewed and adjusted accordingly: Yes Anticipated discharge: Home Within: within 24 hours, within 48 hours
[2016-08-06] MEDS: SIMVASTATIN 10 MG TABLET PO SCH (21:11)
[2016-08-06] MEDS: CARVEDILOL 12.5 MG TABLET PO SCH (21:11)
[2016-08-07] MEDS: METHYLPREDNISOLONE INJ 40 MG/1 ML SDV IV SCH (06:03)
[2016-08-07] MEDS: IPRATROPIUM/ALBUTEROL 0.5-2.5 MG/3 ML AMPUL NEB SCH ×2 (08:01→13:47)
[2016-08-07 09:46] LABS: ANION GAP 13 (5-19); BLOOD UREA NITROGEN 41 mg/dL (7-20); CALCIUM 9.4 mg/dL (8.4-10.2); CARBON DIOXIDE 37 mmol/L (22-30); CHLORIDE 83 mmol/L (98-107); CREATININE RESULT 1.77 mg/dL (0.52-1.25); GLUCOSE 109 mg/dL (75-110); POTASSIUM 3.6 mmol/L (3.6-5.0); SODIUM 133.2 mmol/L (137-145)
[2016-08-07] MEDS ORDERED: PREDNISONE 20 MG TABLET PO SCH (10:00)
[2016-08-07] MEDS: ENOXAPARIN SODIUM INJ 30 MG/0.3 ML DISP.SYRIN SUBCUT SCH (10:10)
[2016-08-07] MEDS: GUAIFENESIN 600 MG TABLET.SA PO SCH (10:10)
[2016-08-07] MEDS: NYSTATIN 500000 UNIT/5 ML UDCUP PO SCH ×2 (10:10→14:30)
[2016-08-07] MEDS: POTASSIUM CHLORIDE 10 MEQ TABLET.SA PO SCH (10:10)
[2016-08-07] MEDS: FLUTICASONE NASAL SPRAY 50 MCG/SPRY 120 SPRAY/16 GM NASL SCH (10:10)
[2016-08-07] MEDS: AMLODIPINE BESYLATE 10 MG TABLET PO SCH (10:11)
[2016-08-07] MEDS: HYDROCHLOROTHIAZIDE 25 MG TABLET PO SCH (10:11)
[2016-08-07] MEDS: LISINOPRIL 10 MG TABLET PO SCH (10:11)
[2016-08-07] MEDS: CARVEDILOL 12.5 MG TABLET PO SCH (10:11)
[2016-08-07 15:24] VITALS: BP 158/95
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
== END 2016-08-07 15:59 | disposition home or self-care (01) | DRG 304 ==
LOC: ER 09:37 → UNDOADMIN 13:58 → EH 13:58 → ICU 14:29 → EH 14:34 → ICU 14:35 → EH 14:35 → 3W 15:56 → EH 15:56
PROVIDERS: ADMIT Family Medicine; ATTEND Family Medicine
PROC: 3E0F73Z Introduction of Anti-inflammatory into Respiratory Tract, Via Natural or Artificial Opening (ICD-10-PCS; principal; 2016-08-04)
DX: I16.1 Hypertensive emergency (principal); J96.01 Acute respiratory failure with hypoxia; J44.1 Chronic obstructive pulmonary disease with (acute) exacerbation; B37.0 Candidal stomatitis; I12.9 Hypertensive chronic kidney disease with stage 1 through stage 4 chronic kidney disease, or unspecified chronic kidney disease; N18.3 Chronic kidney disease, stage 3 (moderate); F17.210 Nicotine dependence, cigarettes, uncomplicated; E78.5 Hyperlipidemia, unspecified; R73.03 Prediabetes; J32.0 Chronic maxillary sinusitis; R51 Headache; M19.90 Unspecified osteoarthritis, unspecified site; Z79.899 Other long term (current) drug therapy; Z83.3 Family history of diabetes mellitus; Z82.49 Family history of ischemic heart disease and other diseases of the circulatory system
CPT/HCPCS: 36415; 70450; 71020; 80048; 80053; 80061; 80307; 81001; 82550; 82553; 83036; 83690; 83880; 84484; 85025; 85610; 93005; 93010; 93306; 94640; 94799; 96374; 99285; J0360; J1650; J2920; J3490; J7512; J7620

== ENCOUNTER 2017-02-21 10:25 | Inpatient (IN) | payer MEDICAID ==
[2017-02-21] MEDS ORDERED: HYDRALAZINE HCL INJ/PF 20 MG/1 ML SDV IV ONE ×2 (10:49→12:16)
--- NOTE | 2017-02-21 11:07 | ER Document Report ---
ED Medical Screen (RME) - General Chief Complaint: Breathing Difficulty Stated Complaint: BREATHING DIFFICULTY Time Seen by Provider: 02/21/17 10:47 TRAVEL OUTSIDE OF THE [place] IN LAST 30 DAYS: No - HPI Notes: 02/21/17 11:01 61-year-old male with a history of hypertension, COPD and noncompliance with taking hypertensive medication presents today with complaints of sudden onset shortness of breath, cough that started approximately 1 day ago. Onset left- sided chest pain patient's blood pressure is currently 192/126. Reports orthopnea, dyspnea. Reports epigastric pain that started along with his shortness of breath. Reports fevers and chills. Denies any rashes. Patient is supposed to be taking lisinopril 20 mg with 12.5 hydrochlorothiazide daily, but states she is unable to afford his blood pressure medication. Does not have a primary care provider. Denies any blurred vision, double vision, loss of vision, headache, numbness or tingling down bilateral upper or lower extremities, nausea, vomiting, diarrhea, testicular, rectal pain or hematuria. I have greeted and performed a rapid initial assessment of this patient. A comprehensive ED assessment and evaluation of the patient, analysis of test results and completion of medical decision making process will be conducted by an additional ED providers. 02/21/17 12:41 02/21/17 13:19 - Related Data Allergies/Adverse Reactions: No Known Allergies Allergy (Verified 02/21/17 10:25) Past Medical History - Social History Frequency of alcohol use: None Drug Abuse: None - Past Medical History Cardiac Medical History: Reports: Hx Hypertension - stopped medication 2007 could not afford f/u appt or medication Pulmonary Medical History: Denies: Hx Asthma Renal/ Medical History: Denies: Hx Peritoneal Dialysis Musculoskeltal Medical History: Reports Hx Arthritis Past Surgical History: Reports: Hx Orthopedic Surgery - Immunizations Immunizations up to date: Yes Hx Diphtheria, Pertussis, Tetanus Vaccination: No Review of Systems - Review of Systems EENT: No symptoms reported Cardiovascular: See HPI Respiratory: See HPI Gastrointestinal: No symptoms reported Genitourinary: No symptoms reported Male Genitourinary: No symptoms reported Musculoskeletal: No symptoms reported Skin: No symptoms reported Hematologic/Lymphatic: No symptoms reported Neurological/Psychological: No symptoms reported -: Yes All other systems reviewed and negative Physical Exam - Vital signs Vitals: Temp Pulse Resp BP Pulse Ox 97.9 F 89 28 H 190/126 H 94 02/21/17 10:33 02/21/17 10:33 02/21/17 10:33 02/21/17 10:33 02/21/17 10:33 - Notes Notes: PHYSICAL EXAMINATION: GENERAL: Well-appearing, well-nourished and in no mid distress HEAD: Atraumatic, normocephalic. EYES: Pupils equal round and reactive to light, extraocular movements intact, sclera anicteric, conjunctiva are normal. ENT: Nares patent, oropharynx clear without exudates. Moist mucous membranes. NECK: Normal range of motion, supple without lymphadenopathy LUNGS: diminished BS in bilateral lower lobes, scant wheezes in bilateral upper lobes lobes no rales or rhonchi. HEART: Regular rate and rhythm without murmurs ABDOMEN: Soft, nontender, nondistended abdomen. No guarding, no rebound. No masses appreciated. Musculoskeletal: Normal range of motion, no pitting or edema. No cyanosis. NEUROLOGICAL: Cranial nerves grossly intact. Normal speech, normal gait. Normal sensory, motor exams PSYCH: Normal mood, normal affect. SKIN: Warm, Dry, normal turgor, no rashes or lesions noted. Course - Re-evaluation Re-evalutation: 02/21/17 11:13 Patient started with acute onset left-sided chest pain approximately 30 minutes ago, states pain is 6 out of 10, reports "pressure". Denies radiation of pain. Patient states chest pain is constant. Nitro ordered, EKG being performed and patient being placed a monitoring tech 02/21/17 12:00-patient found some relief with nitro chest pain went down to a 2 out of 10 left-sided. Will give patient another nitroglycerin as well as albuterol treatments. Patient given IV Solu-Medrol. 1215: pt states he is not experiencing any CP after last nitro - Vital Signs Vital signs: Temp Pulse Resp BP Pulse Ox 97.9 F 105 H 26 H 163/110 H 97 02/21/17 10:33 02/21/17 12:35 02/21/17 12:35 02/21/17 12:35 02/21/17 12:35 - Laboratory Result Diagrams: 02/21/17 11:40 02/21/17 11:40 Laboratory results interpreted by me: 02/21/17 02/21/17 02/21/17 11:40 11:40 11:40 RDW 15.2 H Creatinine 1.34 H Est GFR (Non-Af Amer) 54 L Calcium 10.4 H Urine Protein 30 H Urine Ketones TRACE H Urine Blood LARGE H - EKG Interpretation by Me EKG shows normal: Sinus rhythm Rate: Normal [place]/QRS: Right axis deviation
[2017-02-21] MEDS ORDERED: IPRATROPIUM/ALBUTEROL 0.5-2.5 MG/3 ML AMPUL NEB ONE ×2 (11:08→12:02)
[2017-02-21] MEDS ORDERED: NITROGLYCERIN 0.4 MG/TAB 25 TAB/BOTTLE SL ONE (11:11)
[2017-02-21 11:58] LABS: ABSOLUTE LYMPHOCYTES (AUTO) 1.1 10^3/uL (0.5-4.7); ABSOLUTE MONOCYTES (AUTO) 0.6 10^3/uL (0.1-1.4); ABSOLUTE NEUT (AUTO) 4.2 10^3/uL (1.7-8.2); BASOPHILS % (AUTO) 0.7 % (0-2); EOSINOPHILS % (AUTO) 0.1 % (0-6); HEMATOCRIT 46.1 % (37.9-51.0); HEMOGLOBIN 15.5 g/dL (13.5-17.0); LYMPHOCYTES % (AUTO) 19.2 % (13-45); MEAN CORPUSCULAR HEMOGLOBIN 30.4 pg (27.0-33.4); MEAN CORPUSCULAR HGB CONC 33.5 g/dL (32.0-36.0); MEAN CORPUSCULAR VOLUME 91 fl (80-97); MONOCYTES % (AUTO) 9.3 % (3-13); PLATELET COUNT 159 10^3/uL (150-450); RED CELL DISTRIBUTION WIDTH 15.2 % (11.5-14.0); SEGMENTED NEUTROPHILS % (AUTO) 70.7 % (42-78); TOTAL CELLS COUNTED % (AUTO) 100 %; WHITE BLOOD COUNT 5.9 10^3/uL (4.0-10.5)
[2017-02-21 12:02] LABS: APPEARANCE,URINE CLEAR; BILIRUBIN,URINE NEGATIVE (NEGATIVE); COLOR,URINE STRAW; GLUCOSE, URINE NEGATIVE (NEGATIVE); KETONES,URINE TRACE mg/dL (NEGATIVE); LEUKOCYTE ESTERASE,URINE NEGATIVE (NEGATIVE); NITRITE,URINE NEGATIVE (NEGATIVE); PROTEIN,URINE 30 mg/dL (NEGATIVE); URINE SPECIFIC GRAVITY 1.011; UROBILINOGEN,URINE NEGATIVE mg/dL (<2.0)
[2017-02-21] MEDS ORDERED: METHYLPREDNISOLONE INJ 125 MG/2 ML SDV IV ONE (12:02)
[2017-02-21 12:03] LABS: INTERNATIONAL RATION (INR) 0.95; PROTHROMBIN TIME 13.4 SEC (11.4-15.4)
[2017-02-21 12:04] LABS: PARTIAL THROMBOPLASTIN TIME 33.1 SEC (23.5-35.8)
[2017-02-21] MEDS: NITROGLYCERIN 0.4 MG/TAB 25 TAB/BOTTLE SL PRN (12:05)
[2017-02-21] MEDS ORDERED: NORMAL SALINE 1000 ML 1,000 ML IV PRN (12:16)
[2017-02-21 12:19] LABS: ALANINE AMINOTRANSFERASE 23 U/L (21-72); ALBUMIN 4.7 g/dL (3.5-5.0); ALKALINE PHOSPHATASE 94 U/L (38-126); ANION GAP 18 (5-19); ASPARTATE AMINO TRANSFERASE 29 U/L (17-59); BILIRUBIN,DIRECT 0.3 mg/dL (0.0-0.4); BILIRUBIN,TOTAL 0.6 mg/dL (0.2-1.3); BLOOD UREA NITROGEN 20 mg/dL (7-20); CALCIUM 10.4 mg/dL (8.4-10.2); CARBON DIOXIDE 25 mmol/L (22-30); CHLORIDE 101 mmol/L (98-107); CREATINE KINASE 127 U/L (55-170); GLUCOSE 85 mg/dL (75-110); POTASSIUM 4.1 mmol/L (3.6-5.0); SODIUM 143.5 mmol/L (137-145)
[2017-02-21] MEDS ORDERED: NORMAL SALINE 250 ML IV PRN (12:20)
[2017-02-21 12:22] LABS: URINE AMPHETAMINES SCREEN NEGATIVE; URINE BARBITURATES SCREEN NEGATIVE; URINE BENZODIAZEPINES SCREEN NEGATIVE; URINE COCAINE SCREEN NEGATIVE; URINE MARIJUANA (THC) SCREEN NEGATIVE; URINE METHADONE SCREEN NEGATIVE; URINE PHENCYCLIDINE SCREEN NEGATIVE
[2017-02-21 12:34] LABS: CREATINE KINASE MB 2.1 ng/mL (<4.55); TROPONIN I 0.031 ng/mL
--- NOTE | 2017-02-21 13:43 | RADIOLOGY REPORT (SQ) ---
EXAM DESCRIPTION: CHEST PA/LAT COMPLETED DATE/TIME: 02/21/2017 1:17 pm REASON FOR STUDY: sob with cp COMPARISON: Edit 08/05/2016. EXAM PARAMETERS: NUMBER OF VIEWS: two views TECHNIQUE: Digital Frontal and Lateral radiographic views of the chest acquired. RADIATION DOSE: NA LIMITATIONS: none FINDINGS: LUNGS AND PLEURA: No opacities, masses or pneumothorax. No pleural effusion. Incidental b ilateral nipple shadows. MEDIASTINUM AND HILAR STRUCTURES: No masses or contour abnormalities. HEART AND VASCULAR STRUCTURES: Heart normal size. No evidence for failure. BONES: No acute findings. HARDWARE: None in the chest. OTHER: No other significant finding. IMPRESSION: NO SIGNIFICANT RADIOGRAPHIC FINDING IN THE CHEST. TECHNICAL DOCUMENTATION: JOB ID: [id number] [employer]- All Rights Reserved
[2017-02-21] MEDS ORDERED: ALBUTEROL SULFATE 0.083% NEB 2.5 MG/3 ML AMPUL NEB ONE (13:54)
[2017-02-21] MEDS ORDERED: CEFTRIAXONE 1 GM/D5W RTU 1 GM/50 ML RTUPB IV ONE (13:59)
[2017-02-21] MEDS ORDERED: AZITHROMYCIN 250 MG TABLET PO ONE (13:59)
--- NOTE | 2017-02-21 14:26 | ER Document Report ---
ED Respiratory Problem - General Chief Complaint: Breathing Difficulty Stated Complaint: BREATHING DIFFICULTY Time Seen by Provider: 02/21/17 10:47 Information source: Patient Notes: Patient with several day history of worsening shortness of breath. Has had this happen once before. Patient smokes. Has hypertension. Does not have a regular doctor. States that he has no wind in him to do anything. Just walking across the room he feels like he is going to pass out. TRAVEL OUTSIDE OF THE [place] IN LAST 30 DAYS: No - HPI Patient complains to provider of: COPD, Cough, Short of breath Onset: Yesterday Duration: Better Quality of pain: No pain Severity: Moderate Pain Level: 3 Context: Hx COPD Short of Breath: Severe Cough: Nonproductive Associated symptoms: None - Related Data Allergies/Adverse Reactions: No Known Allergies Allergy (Verified 02/21/17 10:25) Past Medical History - Social History Smoking Status: Current Every Day Smoker Frequency of alcohol use: None Drug Abuse: None Lives with: Family Family History: CAD, DM, Hypertension Patient has suicidal ideation: No Patient has homicidal ideation: No - Past Medical History Cardiac Medical History: Reports: Hx Hypertension - stopped medication 2007 could not afford f/u appt or medication Pulmonary Medical History: Denies: Hx Asthma Renal/ Medical History: Denies: Hx Peritoneal Dialysis Musculoskeltal Medical History: Reports Hx Arthritis Past Surgical History: Reports: Hx Orthopedic Surgery - Immunizations Immunizations up to date: Yes Hx Diphtheria, Pertussis, Tetanus Vaccination: No Review of Systems - Review of Systems Constitutional: Chills EENT: No symptoms reported Cardiovascular: No symptoms reported Respiratory: Cough, Short of breath, Wheezing Gastrointestinal: No symptoms reported Genitourinary: No symptoms reported Male Genitourinary: No symptoms reported Musculoskeletal: No symptoms reported Skin: No symptoms reported Hematologic/Lymphatic: No symptoms reported Neurological/Psychological: No symptoms reported Physical Exam - Vital signs Vitals: Temp Pulse Resp BP Pulse Ox 97.9 F 89 28 H 190/126 H 94 02/21/17 10:33 02/21/17 10:33 02/21/17 10:33 02/21/17 10:33 02/21/17 10:33 Interpretation: Tachycardic - General General appearance: Appears well, Alert - HEENT Head: Normocephalic, Atraumatic Eyes: Normal Pupils: PERRL - Respiratory Respiratory status: No respiratory distress Chest status: Nontender Breath sounds: Decreased air movement, Nonproductive cough, Wheezing Chest palpation: Normal - Cardiovascular Rhythm: Tachycardia Heart sounds: Normal auscultation Murmur: No - Abdominal Inspection: Normal Distension: No distension Bowel sounds: Normal Tenderness: Nontender Organomegaly: No organomegaly - Back Back: Normal, Nontender - Extremities General upper extremity: Normal inspection, Nontender, Normal color, Normal ROM , Normal temperature General lower extremity: Normal inspection, Nontender, Normal color, Normal ROM , Normal temperature, Normal weight bearing. No: Edema, Eunice's sign - Neurological Neuro grossly intact: Yes Cognition: Normal Orientation: AAOx4 [place] Coma Scale Eye Opening: Spontaneous [place] Coma Scale Verbal: Oriented [place] Coma Scale Motor: Obeys Commands [place] Coma Scale Total: 15 Speech: Normal Motor strength normal: LUE, RUE, LLE, RLE Sensory: Normal - Psychological Associated symptoms: Normal affect, Normal mood - Skin Skin Temperature: Warm Skin Moisture: Dry Skin Color: Normal Course - Re-evaluation Re-evalutation: 02/21/17 14:22 This is a 61-year-old male appears older than his stated age. Smoker. Was satting at approximately 84% on arrival. Taking him off the oxygen and he readily drops below 90. Multiple droop breathing treatments have been given. Steroids have been given. Labs are fairly unremarkable. Will admit at this time for COPD exacerbation with hypoxia. - Vital Signs Vital signs: Temp Pulse Resp BP Pulse Ox 97.9 F 105 H 26 H 163/110 H 97 02/21/17 10:33 02/21/17 12:35 02/21/17 12:35 02/21/17 12:35 02/21/17 12:35 - Laboratory Result Diagrams: 02/21/17 11:40 02/21/17 11:40 Laboratory results interpreted by me: 02/21/17 02/21/17 02/21/17 11:40 11:40 11:40 RDW 15.2 H Creatinine 1.34 H Est GFR (Non-Af Amer) 54 L Calcium 10.4 H Urine Protein 30 H Urine Ketones TRACE H Urine Blood LARGE H Critical Care Note - Critical Care Note Total time excluding time spent on procedures (mins): 30 Comments: Hypoxia, tachycardia, respiratory distress Discharge - Discharge Clinical Impression: COPD exacerbation, Hypertensive urgency Disposition: ADMITTED INPATIENT Admitting Provider: Hospitalist - [place] [facility] Admitted: Telemetry
[2017-02-21] MEDS ORDERED: CEFTRIAXONE SODIUM 1,000 MG in DEXTROSE 5%-WATER 50 ML IV ONE (15:00)
[2017-02-21] MEDS ORDERED: RINGERS SOLUTION,LACTATED 1,000 ML IV PRN (15:04)
[2017-02-21] MEDS ORDERED: ACETAMINOPHEN 325 MG TABLET PO PRN (15:04)
[2017-02-21] MEDS ORDERED: ONDANSETRON HCL INJ/PF 4 MG/2 ML SDV IV PRN (15:04)
[2017-02-21 15:08] LABS: ARTERIAL BLOOD BASE EXCESS -1.2 mmol/L; ARTERIAL BLOOD FIO2 1L; ARTERIAL BLOOD H2CO3 1.19 mmol/L (1.05-1.35); ARTERIAL BLOOD HCO3 23.5 mmol/L (20-26); ARTERIAL BLOOD PCO2 39.6 mmHg (35-45); ARTERIAL BLOOD PH 7.39 (7.35-7.45); ARTERIAL BLOOD PO2 81.9 mmHg (80-100); ARTERIAL BLOOD TOTAL CO2 24.8 mmol/L (23-27)
[2017-02-21] MEDS ORDERED: BUDESONIDE NEB 0.5 MG/2 ML AMPUL NEB ONE (15:30)
[2017-02-21] MEDS: CLONIDINE HCL 0.1 MG TABLET PO PRN (15:49)
[2017-02-21] MEDS ORDERED: MONTELUKAST SODIUM 10 MG TABLET PO ONE (16:00)
--- NOTE | 2017-02-21 16:38 | PDOC H&P ---
History of Present Illness Admission Date/PCP: 02/21/17 14:49 Patient complains of: Shortness of breath History of Present Illness: PANKAJ SORTO is a 61 year old male no stated past medical history. Patient does not follow with a PCP however patient does not have an extensive smoking history. Patient states he has been smoking since age of 16. Patient was evaluated late last year with possible COPD exacerbation although not formally diagnosed. Patient states he was doing well until couple days ago when he was outside scraping off the snow off his his mother's and brought his porch. Patient states after that he developed a cold and abdominal discomfort. Patient states that it took him over 4 hours to wash his entire body because he continued to be short of breath. She states that he is unable to lie down without becoming short of breath. Patient has a cough however it is not productive. Patient denies taking any medicines or seen a doctor. Patient states he takes a BC powder for his headaches. In the ED patient was noted to be hypertensive with blood pressures 202/128. Patient was also noted to be hypoxic down to 84 with ambulating. Patient still extremely short of breath the site being given steroids and treating treatments. Attempts were made to send patient for CT scan however he is unable to lie flat. Pressures called to admit patient for also resume COPD exacerbation. Past Medical History Cardiac Medical History: Reports: Hypertension - stopped medication 2007 could not afford f/u appt or medication Pulmonary Medical History: Reports: Chronic Obstructive Pulmonary Disease (COPD) Denies: Asthma Renal/ Medical History: Reports: Chronic Kidney Disease Musculoskeltal Medical History: Reports: Arthritis Past Surgical History Past Surgical History: Reports: Orthopedic Surgery Social History Lives with: Family Smoking Status: Current Every Day Smoker Frequency of Alcohol Use: None Hx Recreational Drug Use: No Drugs: None Hx Prescription Drug Abuse: No - Advance Directive Resuscitation Status: Full Code Family History Family History: CAD, DM, Hypertension, Other - Seizures Parental Family History Reviewed: No Children Family History Reviewed: No Sibling(s) Family History Reviewed.: No Medication/Allergy Home Medications: No Home Medications 02/21/17 Allergies/Adverse Reactions: No Known Allergies Allergy (Verified 02/21/17 10:25) Review of Systems Constitutional: ABSENT: chills, fever(s), headache(s), weight gain, weight loss Eyes: ABSENT: visual disturbances Ears: ABSENT: hearing changes Cardiovascular: ABSENT: chest pain, dyspnea on exertion, edema, orthropnea, palpitations Respiratory: PRESENT: cough, dyspnea. ABSENT: hemoptysis Gastrointestinal: ABSENT: abdominal pain, constipation, diarrhea, hematemesis, hematochezia, nausea, vomiting Genitourinary: ABSENT: dysuria, hematuria Musculoskeletal: ABSENT: joint swelling Integumentary: ABSENT: rash, wounds Neurological: ABSENT: abnormal gait, abnormal speech, confusion, dizziness, focal weakness, syncope Psychiatric: ABSENT: anxiety, depression, homidical ideation, suicidal ideation Endocrine: ABSENT: cold intolerance, heat intolerance, polydipsia, polyuria Hematologic/Lymphatic: ABSENT: easy bleeding, easy bruising Physical Exam Vital Signs: Temp Pulse Resp BP Pulse Ox 97.9 F 105 H 22 H 198/121 H 93 02/21/17 10:33 02/21/17 12:35 02/21/17 15:41 02/21/17 15:41 02/21/17 15:41 General appearance: PRESENT: mild distress, well-developed, well-nourished Head exam: PRESENT: normocephalic Eye exam: PRESENT: EOMI. ABSENT: scleral icterus Mouth exam: PRESENT: moist Neck exam: ABSENT: carotid bruit, JVD, lymphadenopathy, thyromegaly Respiratory exam: PRESENT: decreased breath sounds, tachypnea, wheezes, other - patient unable to speak in. ABSENT: rales, rhonchi Cardiovascular exam: PRESENT: RRR. ABSENT: diastolic murmur, rubs, systolic murmur GI/Abdominal exam: PRESENT: normal bowel sounds, soft. ABSENT: distended, guarding, mass, organolmegaly, rebound, tenderness Rectal exam: PRESENT: deferred Extremities exam: PRESENT: full ROM. ABSENT: calf tenderness, clubbing, pedal edema Neurological exam: PRESENT: alert, awake, oriented to person, oriented to place , oriented to time, oriented to situation, CN II-XII grossly intact. ABSENT: motor sensory deficit Psychiatric exam: PRESENT: appropriate affect, normal mood. ABSENT: homicidal ideation, suicidal ideation Skin exam: PRESENT: dry, intact, warm. ABSENT: cyanosis, rash Results Laboratory Results: 02/21/17 02/21/17 02/21/17 11:40 11:40 11:40 Sodium 143.5 Potassium 4.1 Chloride 101 Carbon Dioxide 25 Anion Gap 18 BUN 20 Creatinine 1.34 H Est GFR ( Amer) > 60 Est GFR (Non-Af Amer) 54 L Glucose 85 Lactic Acid 2.1 Calcium 10.4 H Total Bilirubin 0.6 Direct Bilirubin 0.3 AST 29 ALT 23 Alkaline Phosphatase 94 Creatine Kinase 127 CK-MB (CK-2) 2.10 Troponin I 0.031 NT-Pro-B Natriuret Pep 158 Total Protein 8.0 Albumin 4.7 Impressions: Chest X-Ray 02/21/17 12:43 IMPRESSION: NO SIGNIFICANT RADIOGRAPHIC FINDING IN THE CHEST. Assessment & Plan - Diagnosis (1) Acute hypoxemic respiratory failure Is this a current diagnosis for this admission?: Yes Plan: Acute hypoxic respiratory failure most likely due to COPD exacerbation from acute bronchitis. Patient currently on supplemental oxygen and is able to maintain sats however he is still dyspneic. Will continue to monitor. Patient does not wear supplemental oxygen at home. (2) COPD exacerbation Is this a current diagnosis for this admission?: Yes Plan: Patient without a formal diagnosis of COPD however with the history of tobacco abuse since age 16 is more than likely the patient has COPD. This is most likely due to an acute bronchitis as patient chest x-ray is clear. Patient does have a cough and increased shortness of breath. Patient started on Solu- Medrol 60 mg IV 3 times daily, azithromycin, ceftriaxone, DuoNeb's, budesonide, Mucinex and Singulair. CT of the chest was order however not done as patient is unable to lie flat. Can be completed once patient is more stable. (3) Acute bronchitis Is this a current diagnosis for this admission?: Yes Plan: Patient with possible acute bronchitis. Will rule out influenza. Patient currently on nebs, steroids, antibiotics. (4) Hypertensive emergency Is this a current diagnosis for this admission?: Yes Plan: Patient presented with a systolic blood pressure of 202 a diastolic over 128. Patient is currently short of breath which could be secondary to his COPD however worsened by the accelerated blood pressure. She does have elevated creatinine however this could be chronic. Patient was given several doses of IV hydralazine in the ED. Patient states he does not have hypertension however he is not followed by anyone and may in fact have untreated hypertension. (5) Lactic acidosis Plan: Lactic acidosis probably secondary to his respiratory status. Will gently hydrate and repeat lactic acid in the a.m. (6) Stage 3 chronic kidney disease due to benign hypertension Is this a current diagnosis for this admission?: Yes Plan: He has a CKD stage III that appears chronic in nature. Will monitor. (7) Tobacco abuse Is this a current diagnosis for this admission?: Yes Plan: Nicotine patch in place. Will litigation counsel patient on smoking cessation. - Time Time Spent: 30 to 50 Minutes Medications reviewed and adjusted accordingly: Yes Anticipated discharge: Home Within: within 72 hours - Inpatient Certification Medical Necessity: Significant Comorbidiites Make Outpatient Treatment Too Risky , Need Close Monitoring Due to Risk of Patient Decompensation, Need For IV Fluids, Need for Nebulizer Therapy and Monitoring of Response
--- NOTE | 2017-02-21 18:44 | EKG REPORT ---
SEVERITY:- ABNORMAL ECG - SINUS RHYTHM LEFT ANTERIOR FASCICULAR BLOCK PROBABLE RIGHT VENTRICULAR HYPERTROPHY : Confirmed by: Jordon Curry MD 21-Feb-2017 18:43:55
[2017-02-21] MEDS: IPRATROPIUM/ALBUTEROL 0.5-2.5 MG/3 ML AMPUL NEB SCH (19:59)
[2017-02-21] MEDS: BUDESONIDE NEB 0.5 MG/2 ML AMPUL NEB SCH (19:59)
[2017-02-21] MEDS: METHYLPREDNISOLONE INJ 125 MG/2 ML SDV IV SCH (21:59)
[2017-02-21] MEDS: GUAIFENESIN 600 MG TABLET.SA PO SCH (21:59)
[2017-02-21] MEDS ORDERED: NIFEDIPINE 30 MG TAB.ER.24 PO SCH (22:00)
[2017-02-22] MEDS: HYDRALAZINE HCL INJ/PF 20 MG/1 ML SDV IV PRN ×2 (03:49→10:29)
[2017-02-22] MEDS: METHYLPREDNISOLONE INJ 125 MG/2 ML SDV IV SCH ×3 (05:14→21:29)
[2017-02-22] MEDS: LANSOPRAZOLE 15 MG TAB.RAP.DR PO SCH (05:14)
[2017-02-22 05:31] LABS: ABSOLUTE LYMPHOCYTES (AUTO) 0.7 10^3/uL (0.5-4.7); ABSOLUTE MONOCYTES (AUTO) 0.1 10^3/uL (0.1-1.4); BASOPHILS % (AUTO) 0.3 % (0-2); HEMATOCRIT 44.9 % (37.9-51.0); LYMPHOCYTES % (AUTO) 25.3 % (13-45); MEAN CORPUSCULAR HEMOGLOBIN 30.4 pg (27.0-33.4); MEAN CORPUSCULAR HGB CONC 33.5 g/dL (32.0-36.0); MEAN CORPUSCULAR VOLUME 91 fl (80-97); MONOCYTES % (AUTO) 4.8 % (3-13); PLATELET COUNT 144 10^3/uL (150-450); RED BLOOD COUNT 4.95 10^6/uL (4.35-5.55); RED CELL DISTRIBUTION WIDTH 14.6 % (11.5-14.0); SEGMENTED NEUTROPHILS % (AUTO) 69.6 % (42-78); TOTAL CELLS COUNTED % (AUTO) 100 %
[2017-02-22 05:51] LABS: ANION GAP 17 (5-19); BLOOD UREA NITROGEN 25 mg/dL (7-20); CALCIUM 10.2 mg/dL (8.4-10.2); CARBON DIOXIDE 25 mmol/L (22-30); CHLORIDE 102 mmol/L (98-107); GLUCOSE 134 mg/dL (75-110); MAGNESIUM 2.1 mg/dL (1.6-2.3); POTASSIUM 4.3 mmol/L (3.6-5.0)
[2017-02-22 05:52] LABS: WHITE BLOOD COUNT 2.9 10^3/uL (4.0-10.5)
[2017-02-22] MEDS: IPRATROPIUM/ALBUTEROL 0.5-2.5 MG/3 ML AMPUL NEB SCH (08:56)
[2017-02-22] MEDS: BUDESONIDE NEB 0.5 MG/2 ML AMPUL NEB SCH ×2 (08:56→20:20)
[2017-02-22] MEDS ORDERED: ENOXAPARIN SODIUM INJ 40 MG/0.4 ML DISP.SYRIN SUBCUT SCH (10:00)
[2017-02-22] MEDS ORDERED: CEFTRIAXONE 1 GM/D5W RTU 1 GM/50 ML RTUPB IV SCH (10:00)
[2017-02-22] MEDS ORDERED: NIFEDIPINE 30 MG TAB.ER.24 PO SCH (10:00)
[2017-02-22] MEDS ORDERED: CEFTRIAXONE SODIUM 1,000 MG in DEXTROSE 5%-WATER 50 ML IV SCH (10:00)
[2017-02-22] MEDS: DOCUSATE SODIUM 100 MG CAPSULE PO SCH (10:28)
[2017-02-22] MEDS: GUAIFENESIN 600 MG TABLET.SA PO SCH ×2 (10:28→21:29)
[2017-02-22] MEDS: AZITHROMYCIN 250 MG TABLET PO SCH (10:28)
[2017-02-22] MEDS: NICOTINE 21 MG/24 HR PATCH.TD24 TD SCH (10:29)
[2017-02-22] MEDS ORDERED: LOSARTAN POTASSIUM 25 MG TABLET PO ONE (10:58)
[2017-02-22] MEDS: NITROGLYCERIN 0.4 MG/TAB 25 TAB/BOTTLE SL PRN (11:33)
[2017-02-22] MEDS: CLONIDINE HCL 0.1 MG TABLET PO PRN (11:41)
[2017-02-22] MEDS ORDERED: NITROGLYCERIN 2.5 MG (0.1 MG/HR) PATCH.TD24 TD ONE (11:43)
[2017-02-22] MEDS ORDERED: LABETALOL HCL INJ 20 MG/4 ML DISP.SYRIN IV PRN (11:46)
[2017-02-22] MEDS ORDERED: LORAZEPAM INJ 2 MG/1 ML VIAL IV ONE (11:48)
[2017-02-22] MEDS ORDERED: IPRATROPIUM/ALBUTEROL 0.5-2.5 MG/3 ML AMPUL NEB PRN (11:48)
[2017-02-22] MEDS ORDERED: ASPIRIN 81 MG TABLET, CHEWABLE PO ONE (11:52)
[2017-02-22] MEDS ORDERED: METOPROLOL SUCCINATE 25 MG TAB.SR.24H PO ONE (13:00)
[2017-02-22] MEDS: LEVALBUTEROL HCL NEB 1.25 MG/3 ML AMPUL NEB SCH ×2 (14:04→20:20)
--- NOTE | 2017-02-22 15:57 | RADIOLOGY REPORT (SQ) ---
EXAM DESCRIPTION: CTA CHEST COMPLETED DATE/TIME: 02/22/2017 3:38 pm REASON FOR STUDY: SOB,HTN,DYSPNEA,ORTHOPNEA COMPARISON: CT chest 04/06/2012 TECHNIQUE: CT scan of the chest performed using helical scanning technique with dynamic intravenous contrast injection. Images reviewed with lung, soft tissue and bone windows. Reconstructed coronal and sagittal MPR images reviewed. Additional 3 dimensional post-processing performed to develop Maximal Intensity Projection images (MT P). All images stored on PACS. All CT scanners at this facility use dose modulation, iterative reconstruction, and/or weight based d osing when appropriate to reduce radiation dose to as low as reasonably achievable (ALARA). [facility]: Dose Right [facility]: CareDose [facility]: Dose Right [facility]: Teradose 4D [facility]: NETpeas CONTRAST TYPE AND DOSE: contrast/concentration: Isovue 370.00 mg/ml; Total Contrast Delivered: 61.0 ml; Total Saline Delivered: 102.3 ml Contrast bolus optimized for the pulmonary arteries. Not diagnostic for the aorta. RENAL FUNCTION: Creatinine 1.2 RADIATION DOSE: CT Rad equipment meets quality standard of care and radiation dose reduction techniq ues were employed. CTDIvol: 9.3 - 11.3 mGy. DLP: 398 mGy-cm. . LIMITATIONS: None. FINDINGS: LUNGS AND PLEURA: No masses, infiltrates, pneumothorax. No pleural effusions, calcificati ons. There is hyperinflation and hyperlucency of the upper lobes from obstructive disease. AORTA AND GREAT VESSELS: No aneurysm. Contrast bolus not optimized for the aorta. HEART: Trace pericardial effusion. No significant coronary artery calcifications. There is left vent ricular hypertrophy with thickening of the left ventricular wall, and dilatation of the ascending aor ta 4.2 cm in diameter. Findings are worrisome for aortic stenosis. PULMONARY ARTERIES: No emboli visualized in the main pulmonary arteries or the segmental branches. HILAR AND MEDIASTINAL STRUCTURES: No identified masses or abnormal nodes. HARDWARE: None in the chest. UPPER ABDOMEN: Small hiatal hernia. Bilateral upper pole renal cortical cysts. THYROID AND OTHER SOFT TISSUES: No masses. No adenopathy. BONES: No acute or significant finding. 3D MIPS: Confirm above findings. OTHER: No other significant finding. IMPRESSION: No CT angio evidence of acute pulmonary emboli. Ascending aorta 4 cm in diameter with thickening of the left ventricular myocardium, correlate clinic ally for aortic stenosis COMMENT: Quality ID # [id number]: Final reports with documentation of one or more dose reduction techniques (e.g., Automated exposure control, adjustment of the mA and/or kV according to patient size, use of iterative reconstruction technique) TECHNICAL DOCUMENTATION: JOB ID: [id number] [employer]- All Rights Reserved
[2017-02-22] MEDS: MONTELUKAST SODIUM 10 MG TABLET PO SCH (21:29)
[2017-02-22] MEDS: BENZONATATE 100 MG CAPSULE PO SCH (21:29)
--- NOTE | 2017-02-22 21:48 | PDOC PROGRESS REPORT ---
Subjective Progress Note for:: 02/22/17 Subjective:: Patient still very short of breath at times. Patient complaining of chest discomfort. Patient still very hypertensive. Reason For Visit: ACUTE BRONCHITIS,COPD EXACERBATON, HYPOXIA, Physical Exam Vital Signs: Temp Pulse Resp BP Pulse Ox 97.4 F 73 20 143/89 H 99 02/22/17 20:00 02/22/17 20:00 02/22/17 20:00 02/22/17 20:00 02/22/17 20:00 Intake & Output 02/21/17 02/22/17 02/23/17 06:59 06:59 06:59 Intake Total 520 2470 Output Total 370 Balance 520 2100 Weight 68 kg General appearance: PRESENT: no acute distress, well-developed, well-nourished Head exam: PRESENT: atraumatic, normocephalic Eye exam: PRESENT: conjunctiva pink, EOMI, PERRLA. ABSENT: scleral icterus Ear exam: PRESENT: normal external ear exam Mouth exam: PRESENT: moist, tongue midline Neck exam: ABSENT: carotid bruit, JVD, lymphadenopathy, thyromegaly Respiratory exam: PRESENT: decreased breath sounds, tachypnea, wheezes, other - Still unable to speak in complete sentences without pausing. Patient in tripod position.. ABSENT: rales, rhonchi, unlabored Cardiovascular exam: PRESENT: RRR, tachycardia. ABSENT: diastolic murmur, rubs , systolic murmur Pulses: PRESENT: normal dorsalis pedis pul Vascular exam: PRESENT: normal capillary refill GI/Abdominal exam: PRESENT: normal bowel sounds, soft. ABSENT: distended, guarding, mass, organolmegaly, rebound, tenderness Rectal exam: PRESENT: deferred Extremities exam: PRESENT: full ROM. ABSENT: calf tenderness, clubbing, pedal edema Neurological exam: PRESENT: alert, awake, oriented to person, oriented to place , oriented to time, oriented to situation, CN II-XII grossly intact. ABSENT: motor sensory deficit Psychiatric exam: PRESENT: appropriate affect, normal mood. ABSENT: homicidal ideation, suicidal ideation Skin exam: PRESENT: dry, intact, warm. ABSENT: cyanosis, rash Results Laboratory Results: 02/22/17 05:14 02/22/17 05:14 02/22/17 02/22/17 02/22/17 05:14 05:14 05:14 WBC 2.9 L D RBC 4.95 Hgb 15.0 Hct 44.9 MCV 91 MCH 30.4 MCHC 33.5 RDW 14.6 H Plt Count 144 L Seg Neutrophils % 69.6 Lymphocytes % 25.3 Monocytes % 4.8 Eosinophils % 0.0 Basophils % 0.3 Absolute Neutrophils 2.0 Absolute Lymphocytes 0.7 Absolute Monocytes 0.1 Absolute Eosinophils 0.0 Absolute Basophils 0.0 Sodium 144.0 Potassium 4.3 Chloride 102 Carbon Dioxide 25 Anion Gap 17 BUN 25 H Creatinine 1.21 Est GFR ( Amer) > 60 Est GFR (Non-Af Amer) > 60 Glucose 134 H Lactic Acid 2.4 H Calcium 10.2 Magnesium 2.1 02/22/17 02/22/17 12:05 18:13 Troponin I 0.028 0.036 Impressions: Chest X-Ray 02/21/17 12:43 IMPRESSION: NO SIGNIFICANT RADIOGRAPHIC FINDING IN THE CHEST. Chest/Abdomen CTA 02/22/17 00:00 IMPRESSION: No CT angio evidence of acute pulmonary emboli. Ascending aorta 4 cm in diameter with thickening of the left ventricular myocardium, correlate clinically for aortic stenosis Assessment & Plan - Diagnosis (1) Acute hypoxemic respiratory failure Is this a current diagnosis for this admission?: Yes Plan: Acute hypoxic respiratory failure most likely due to COPD exacerbation from acute bronchitis. Still on supplemental oxygen as he is very dyspneic without a. CT scan of the chest is negative for PE however there is some concern for aortic stenosis. Cardiac echo pending. (2) COPD exacerbation Is this a current diagnosis for this admission?: Yes Plan: Patient without a formal diagnosis of COPD however with the history of tobacco abuse since age 16 is more than likely the patient has COPD. This is most likely due to an acute bronchitis as patient chest x-ray is clear. Patient does have a cough and increased shortness of breath. Continue Solu-Medrol 60 mg IV 3 times daily, azithromycin, DuoNeb's, budesonide, Mucinex and Singulair. Antitussives added. (3) Acute bronchitis Is this a current diagnosis for this admission?: Yes Plan: Patient with possible acute bronchitis. Will rule out influenza. Patient currently on nebs, steroids, antibiotics. (4) Hypertensive emergency Is this a current diagnosis for this admission?: Yes Plan: Patient presented with a systolic blood pressure of 202 a diastolic over 128. Shortness of breath, chest discomfort and elevated creatinine. Patient currently on metoprolol, Imdur. On as needed clonidine and labetalol for systolic blood pressures greater than 160. (5) Lactic acidosis Plan: Lactic acidosis probably secondary to his respiratory status. (6) Tobacco abuse Is this a current diagnosis for this admission?: Yes (7) Renal failure Is this a current diagnosis for this admission?: Yes Plan: Renal failure possibly due to hypertension versus dehydration. Patient was given gentle hydration and renal function is now normal. Was 1.34 now 1.21. (8) Chest pain Is this a current diagnosis for this admission?: Yes Plan: He complains of chest pain however uncertain if this is due to coughing,COPD exacerbation resulting chest tightness is uncontrolled hypertension. Patient started on metoprolol, aspirin, Nitropaste and statin. Trend troponins. EKG ordered. Still on telemetry. CT scan of chest negative for PE. It did show a possible aortic stenosis. Will follow up with cardiac echo. (9) Neutropenia Is this a current diagnosis for this admission?: Yes Plan: Uncertain if this is due to an acute viral infection. Will continue to monitor. (10) Thrombocytopenia Is this a current diagnosis for this admission?: Yes Plan: Small drop in patient platelet count. Lovenox discontinued. SCDs for DVT prophylaxis started. - Time Time Spent with patient: 15-24 minutes Anticipated discharge: Home Within: within 72 hours, Other - Patient needs to establish care with PCP.
[2017-02-22] MEDS: ATORVASTATIN CALCIUM 40 MG TABLET PO SCH (22:22)
[2017-02-23] MEDS: LEVALBUTEROL HCL NEB 1.25 MG/3 ML AMPUL NEB SCH ×4 (02:21→19:55)
[2017-02-23 05:20] LABS: ABSOLUTE LYMPHOCYTES (AUTO) 0.8 10^3/uL (0.5-4.7); ABSOLUTE MONOCYTES (AUTO) 0.3 10^3/uL (0.1-1.4); ABSOLUTE NEUT (AUTO) 4.8 10^3/uL (1.7-8.2); BASOPHILS % (AUTO) 0.2 % (0-2); HEMATOCRIT 42.4 % (37.9-51.0); HEMOGLOBIN 14.4 g/dL (13.5-17.0); LYMPHOCYTES % (AUTO) 13.1 % (13-45); MEAN CORPUSCULAR HEMOGLOBIN 30.4 pg (27.0-33.4); MEAN CORPUSCULAR HGB CONC 33.9 g/dL (32.0-36.0); MEAN CORPUSCULAR VOLUME 90 fl (80-97); MONOCYTES % (AUTO) 4.4 % (3-13); PLATELET COUNT 130 10^3/uL (150-450); RED BLOOD COUNT 4.73 10^6/uL (4.35-5.55); RED CELL DISTRIBUTION WIDTH 14.9 % (11.5-14.0); SEGMENTED NEUTROPHILS % (AUTO) 82.3 % (42-78); TOTAL CELLS COUNTED % (AUTO) 100 %; WHITE BLOOD COUNT 5.8 10^3/uL (4.0-10.5)
[2017-02-23 05:55] LABS: ANION GAP 13 (5-19); BLOOD UREA NITROGEN 29 mg/dL (7-20); CALCIUM 9.9 mg/dL (8.4-10.2); CARBON DIOXIDE 26 mmol/L (22-30); CHLORIDE 101 mmol/L (98-107); CHOLESTEROL 188.65 mg/dL (0-200); GLUCOSE 117 mg/dL (75-110); MAGNESIUM 2.4 mg/dL (1.6-2.3); POTASSIUM 4.3 mmol/L (3.6-5.0); SODIUM 140.1 mmol/L (137-145); TRIGLYCERIDES 66 mg/dL (<150)
[2017-02-23 06:05] LABS: DIRECT LDL 101 mg/dL (<100)
[2017-02-23] MEDS: BENZONATATE 100 MG CAPSULE PO SCH ×3 (06:05→21:16)
[2017-02-23] MEDS: METHYLPREDNISOLONE INJ 125 MG/2 ML SDV IV SCH ×3 (06:05→21:16)
[2017-02-23] MEDS: HYDROCODONE BIT/HOMATROPINE 5-1.5 MG TABLET PO PRN ×2 (06:05→21:16)
[2017-02-23] MEDS: LANSOPRAZOLE 15 MG TAB.RAP.DR PO SCH (06:05)
[2017-02-23] MEDS: BUDESONIDE NEB 0.5 MG/2 ML AMPUL NEB SCH ×2 (08:36→19:55)
[2017-02-23] MEDS: NITROGLYCERIN 2.5 MG (0.1 MG/HR) PATCH.TD24 TD SCH (09:27)
[2017-02-23] MEDS: AZITHROMYCIN 250 MG TABLET PO SCH (09:27)
[2017-02-23] MEDS: DOCUSATE SODIUM 100 MG CAPSULE PO SCH (09:27)
[2017-02-23] MEDS: GUAIFENESIN 600 MG TABLET.SA PO SCH ×2 (09:27→21:16)
[2017-02-23] MEDS: NICOTINE 21 MG/24 HR PATCH.TD24 TD SCH (09:27)
[2017-02-23] MEDS: METOPROLOL SUCCINATE 50 MG TAB.SR.24H PO SCH (09:27)
[2017-02-23] MEDS ORDERED: ISOSORBIDE MONONITRATE 30 MG TAB.ER.24H PO ONE (10:00)
[2017-02-23] MEDS ORDERED: ASPIRIN 81 MG TABLET, ENT COATED PO SCH (10:00)
[2017-02-23] MEDS ORDERED: LOSARTAN POTASSIUM 50 MG TABLET PO SCH (10:00)
--- NOTE | 2017-02-23 21:03 | PDOC PROGRESS REPORT ---
Subjective Progress Note for:: 02/23/17 Subjective:: Patient with what appears to be COPD due to tobacco abuse since the age of 16 but not formally diagnosed. Patient not on any therapy at home as he does not follow with a PCP. Patient also has poorly controlled hypertension. Patient presented with COPD exacerbation and hypertensive emergency. Patient was intermittently having chest pain and was started on aspirin, beta-edgardo and Nitropaste. Patient chest pain has resolved. Awaiting cardiac echo. Troponins are indeterminate. Suspect that patient chest pain was most likely due to his hypertensive emergency along with a chest tightness from COPD exacerbation. Patient is doing much better today not requiring supplemental oxygen at rest however still needs it with activity. Patient states he is going to stop smoking. Patient states that he also loo traction affecting his health which he will try to stay away from.. Reason For Visit: ACUTE BRONCHITIS,COPD EXACERBATON, HYPOXIA, Physical Exam Vital Signs: Temp Pulse Resp BP Pulse Ox 98.1 F 65 22 H 152/91 H 100 02/23/17 16:00 02/23/17 19:55 02/23/17 19:55 02/23/17 16:00 02/23/17 16:00 Intake & Output 02/22/17 02/23/17 02/24/17 06:59 06:59 06:59 Intake Total 520 2470 1630 Output Total 370 Balance 520 2100 1630 Weight 68 kg General appearance: PRESENT: no acute distress, thin, well-developed, well- nourished Head exam: PRESENT: normocephalic Eye exam: PRESENT: EOMI. ABSENT: scleral icterus Mouth exam: PRESENT: moist Neck exam: ABSENT: carotid bruit, JVD, lymphadenopathy, thyromegaly Respiratory exam: PRESENT: clear to auscultation erickson. ABSENT: rales, rhonchi, wheezes Cardiovascular exam: PRESENT: RRR. ABSENT: diastolic murmur, rubs, systolic murmur GI/Abdominal exam: PRESENT: normal bowel sounds, soft. ABSENT: distended, guarding, mass, organolmegaly, rebound, tenderness Rectal exam: PRESENT: deferred Extremities exam: PRESENT: full ROM. ABSENT: calf tenderness, clubbing, pedal edema Neurological exam: PRESENT: alert, awake, oriented to person, oriented to place , oriented to time, oriented to situation, CN II-XII grossly intact. ABSENT: motor sensory deficit Psychiatric exam: PRESENT: appropriate affect, normal mood. ABSENT: homicidal ideation, suicidal ideation Skin exam: PRESENT: dry, intact, warm. ABSENT: cyanosis, rash Results Laboratory Results: 02/23/17 04:09 02/23/17 04:09 02/23/17 02/23/17 04:09 04:09 WBC 5.8 RBC 4.73 Hgb 14.4 Hct 42.4 MCV 90 MCH 30.4 MCHC 33.9 RDW 14.9 H Plt Count 130 L Seg Neutrophils % 82.3 H Lymphocytes % 13.1 Monocytes % 4.4 Eosinophils % 0.0 Basophils % 0.2 Absolute Neutrophils 4.8 Absolute Lymphocytes 0.8 Absolute Monocytes 0.3 Absolute Eosinophils 0.0 Absolute Basophils 0.0 Sodium 140.1 Potassium 4.3 Chloride 101 Carbon Dioxide 26 Anion Gap 13 BUN 29 H Creatinine 1.23 Est GFR ( Amer) > 60 Est GFR (Non-Af Amer) > 60 Glucose 117 H Calcium 9.9 Magnesium 2.4 H Triglycerides 66 Cholesterol 188.65 LDL Cholesterol Direct 101 H VLDL Cholesterol 13.0 HDL Cholesterol 55 02/22/17 02/22/17 02/23/17 12:05 18:13 00:19 Troponin I 0.028 0.036 0.024 Impressions: Chest X-Ray 02/21/17 12:43 IMPRESSION: NO SIGNIFICANT RADIOGRAPHIC FINDING IN THE CHEST. Chest/Abdomen CTA 02/22/17 00:00 IMPRESSION: No CT angio evidence of acute pulmonary emboli. Ascending aorta 4 cm in diameter with thickening of the left ventricular myocardium, correlate clinically for aortic stenosis Assessment & Plan - Diagnosis (1) Acute hypoxemic respiratory failure Is this a current diagnosis for this admission?: Yes Plan: Acute hypoxic respiratory failure most likely due to COPD exacerbation from acute bronchitis. Patient is not dyspneic at rest however is dyspneic with activity without supplemental oxygen. CT scan negative for PE. (2) COPD exacerbation Is this a current diagnosis for this admission?: Yes Plan: Patient without a formal diagnosis of COPD however with the history of tobacco abuse since age 16 is more than likely the patient has COPD. This is most likely due to an acute bronchitis as patient chest x-ray is clear. Patient does have a cough and increased shortness of breath. Continue Solu-Medrol, azithromycin, DuoNeb,Mucinex and Singulair. Cough improved with antitussives. (3) Acute bronchitis Is this a current diagnosis for this admission?: Yes Plan: Patient currently on nebs, steroids, antibiotics. Chest x-ray clear. Will reorder influenza screen as it was not completed. (4) Hypertensive emergency Is this a current diagnosis for this admission?: Yes Plan: Patient blood pressures are better controlled, breathing is better and chest pain resolved. Continue nitroglycerin patch Imdur and metoprolol. (5) Lactic acidosis Plan: Lactic acidosis probably secondary to his respiratory status. (6) Tobacco abuse Is this a current diagnosis for this admission?: Yes Plan: Nicotine patch in place. He states that he will stop smoking as he cannot stand not be able to breathe. (7) Renal failure Qualifiers: Renal failure chronicity: acute Is this a current diagnosis for this admission?: Yes Plan: Resolved. Renal failure possibly due to hypertension versus dehydration. Patient was given gentle hydration and renal function is now normal. Was 1.34 now 1.21. (8) Chest pain Is this a current diagnosis for this admission?: Yes Plan: Patient chest pain did not appear cardiac in nature. However because of the hypertensive emergency ACS was ruled out with serial troponins. Troponins were indeterminate. However at this time we will continue patient on beta-edgardo and Imdur as patient reports intermittent chest pain from time to time. (9) Neutropenia Is this a current diagnosis for this admission?: Yes Plan: Resolved. (10) Thrombocytopenia Is this a current diagnosis for this admission?: Yes Plan: Platelets are slightly lower today. Lovenox was discontinued yesterday. Patient on SCDs for DVT prophylaxis. Will discontinue aspirin. - Time Time Spent with patient: 15-24 minutes Anticipated discharge: Home Within: within 72 hours - Inpatient Certification Medical Necessity: Need for Nebulizer Therapy and Monitoring of Response
[2017-02-23] MEDS: MONTELUKAST SODIUM 10 MG TABLET PO SCH (21:16)
[2017-02-23] MEDS: ATORVASTATIN CALCIUM 40 MG TABLET PO SCH (21:16)
[2017-02-23] MEDS: CLONIDINE HCL 0.1 MG TABLET PO PRN (21:17)
[2017-02-24] MEDS: LEVALBUTEROL HCL NEB 1.25 MG/3 ML AMPUL NEB SCH ×2 (02:29→08:37)
[2017-02-24] MEDS: METHYLPREDNISOLONE INJ 125 MG/2 ML SDV IV SCH ×3 (06:09→21:26)
[2017-02-24] MEDS: LANSOPRAZOLE 15 MG TAB.RAP.DR PO SCH (06:09)
[2017-02-24] MEDS: BENZONATATE 100 MG CAPSULE PO SCH ×3 (06:10→21:27)
[2017-02-24] MEDS: HYDROCODONE BIT/HOMATROPINE 5-1.5 MG TABLET PO PRN ×3 (06:10→21:26)
[2017-02-24 06:25] LABS: ABSOLUTE LYMPHOCYTES (AUTO) 1.1 10^3/uL (0.5-4.7); ABSOLUTE MONOCYTES (AUTO) 0.5 10^3/uL (0.1-1.4); ABSOLUTE NEUT (AUTO) 5.2 10^3/uL (1.7-8.2); BASOPHILS % (AUTO) 0.2 % (0-2); HEMATOCRIT 40.8 % (37.9-51.0); HEMOGLOBIN 13.7 g/dL (13.5-17.0); LYMPHOCYTES % (AUTO) 16.7 % (13-45); MEAN CORPUSCULAR HEMOGLOBIN 30.4 pg (27.0-33.4); MEAN CORPUSCULAR HGB CONC 33.5 g/dL (32.0-36.0); MEAN CORPUSCULAR VOLUME 91 fl (80-97); MONOCYTES % (AUTO) 6.8 % (3-13); PLATELET COUNT 152 10^3/uL (150-450); RED CELL DISTRIBUTION WIDTH 15.3 % (11.5-14.0); SEGMENTED NEUTROPHILS % (AUTO) 76.3 % (42-78); TOTAL CELLS COUNTED % (AUTO) 100 %; WHITE BLOOD COUNT 6.8 10^3/uL (4.0-10.5)
[2017-02-24 06:59] LABS: ANION GAP 11 (5-19); BLOOD UREA NITROGEN 29 mg/dL (7-20); CALCIUM 10.1 mg/dL (8.4-10.2); CARBON DIOXIDE 29 mmol/L (22-30); CHLORIDE 100 mmol/L (98-107); GLUCOSE 109 mg/dL (75-110); MAGNESIUM 2.5 mg/dL (1.6-2.3); POTASSIUM 4.7 mmol/L (3.6-5.0); SODIUM 139.7 mmol/L (137-145)
[2017-02-24] MEDS: BUDESONIDE NEB 0.5 MG/2 ML AMPUL NEB SCH ×2 (08:37→19:59)
[2017-02-24] MEDS: AZITHROMYCIN 250 MG TABLET PO SCH (09:00)
[2017-02-24] MEDS: METOPROLOL SUCCINATE 50 MG TAB.SR.24H PO SCH (09:00)
[2017-02-24] MEDS: GUAIFENESIN 600 MG TABLET.SA PO SCH ×2 (09:02→21:27)
[2017-02-24] MEDS: NICOTINE 21 MG/24 HR PATCH.TD24 TD SCH (09:03)
[2017-02-24] MEDS: DOCUSATE SODIUM 100 MG CAPSULE PO SCH (09:06)
[2017-02-24] MEDS: NITROGLYCERIN 2.5 MG (0.1 MG/HR) PATCH.TD24 TD SCH (09:07)
[2017-02-24] MEDS: HYDRALAZINE HCL INJ/PF 20 MG/1 ML SDV IV PRN (12:54)
--- NOTE | 2017-02-24 15:15 | EKG REPORT ---
SEVERITY:- ABNORMAL ECG - SINUS RHYTHM LEFT ANTERIOR FASCICULAR BLOCK : Confirmed by: Jordon Curry MD 24-Feb-2017 15:13:50
--- NOTE | 2017-02-24 16:58 | PDOC PROGRESS REPORT ---
Subjective Progress Note for:: 02/24/17 Subjective:: The patient is a 61-year-old male who presents to the hospital with essentially respiratory distress, and increased cough and hypertensive emergency. We presume that he has COPD although this has not been diagnosed. Today, the patient has had intermittent elevations of his blood pressure. He has chest pain which appears to be secondary to coughing episodes plus minus the increase in his blood pressure. He states that he is feeling somewhat better than upon admission. He did request that I changed him from a nebulizer to metered-dose inhaler which I have done. An echocardiogram has been ordered but is still pending. Admission troponins were slightly elevated but flat. Reason For Visit: ACUTE BRONCHITIS,COPD EXACERBATON, HYPOXIA, Physical Exam Vital Signs: Temp Pulse Resp BP Pulse Ox 97.5 F 103 H 16 183/107 H 98 02/24/17 15:48 02/24/17 15:48 02/24/17 15:48 02/24/17 15:48 02/24/17 15:48 Intake & Output 02/23/17 02/24/17 02/25/17 06:59 06:59 06:59 Intake Total 2470 2260 540 Output Total 370 525 200 Balance 2100 1735 340 Weight 70.8 kg Additional comments: The patient appears to be older than his stated age. His cognition and mentation are normal. However, he still appears to be very dyspneic. His lungs demonstrate minimal air movement. I actually did not hear any wheezing. His cardiac exam is distant but regular. His abdomen is soft and flat. Bowel sounds are present. He does not have guarding or rebound noted and there are no hernias or masses present. The lower extremities do not show any edema. The skin is warm, dry and intact. No lesions or rashes are present. Results Laboratory Results: 02/24/17 05:32 02/24/17 05:32 02/24/17 02/24/17 05:32 05:32 WBC 6.8 RBC 4.50 Hgb 13.7 Hct 40.8 MCV 91 MCH 30.4 MCHC 33.5 RDW 15.3 H Plt Count 152 Seg Neutrophils % 76.3 Lymphocytes % 16.7 Monocytes % 6.8 Eosinophils % 0.0 Basophils % 0.2 Absolute Neutrophils 5.2 Absolute Lymphocytes 1.1 Absolute Monocytes 0.5 Absolute Eosinophils 0.0 Absolute Basophils 0.0 Sodium 139.7 Potassium 4.7 Chloride 100 Carbon Dioxide 29 Anion Gap 11 BUN 29 H Creatinine 1.44 H Est GFR ( Amer) > 60 Est GFR (Non-Af Amer) 50 L Glucose 109 Calcium 10.1 Magnesium 2.5 H 02/22/17 02/22/17 02/23/17 12:05 18:13 00:19 Troponin I 0.028 0.036 0.024 Impressions: Chest X-Ray 02/21/17 12:43 IMPRESSION: NO SIGNIFICANT RADIOGRAPHIC FINDING IN THE CHEST. Chest/Abdomen CTA 02/22/17 00:00 IMPRESSION: No CT angio evidence of acute pulmonary emboli. Ascending aorta 4 cm in diameter with thickening of the left ventricular myocardium, correlate clinically for aortic stenosis Assessment & Plan - Diagnosis (1) Acute bronchitis Is this a current diagnosis for this admission?: Yes Plan: The patient is receiving antibiotics, systemic corticosteroids and bronchodilators. Today, he asked that he receive an MDI instead of a nebulizer which I have changed. He likely will require further testing to include pulmonary function testing at discharge and long-acting bronchodilators. (2) COPD exacerbation Is this a current diagnosis for this admission?: Yes Plan: See above (3) Chest pain Is this a current diagnosis for this admission?: Yes Plan: Chest pain is likely associated with the acute bronchitis and hypertensive emergency. However, I am going to transfer more troponins overnight. Echocardiogram has been ordered but not completed. (4) Hypertensive emergency Is this a current diagnosis for this admission?: Yes Plan: Today, I increased the patient's oral medications. He is also receiving IV hydralazine. (5) Lactic acidosis Plan: This was very mildly elevated on admission. (6) Neutropenia Is this a current diagnosis for this admission?: Yes Plan: Resolved. (7) Renal failure Qualifiers: Renal failure chronicity: acute Is this a current diagnosis for this admission?: Yes Plan: We will continue to follow. Creatinine is 1.44. It is essential that we avoid nephrotoxins and dose meds accordingly. (8) Thrombocytopenia Is this a current diagnosis for this admission?: Yes Plan: Only minimally reduced. (9) Acute hypoxemic respiratory failure Is this a current diagnosis for this admission?: Yes Plan: Patient is now on room air. (10) Tobacco abuse Is this a current diagnosis for this admission?: Yes Plan: Patient has been counseled on cessation. - Time Time Spent with patient: 25-34 minutes - Inpatient Certification Medical Necessity: Significant Comorbidiites Make Outpatient Treatment Too Risky , Need Close Monitoring Due to Risk of Patient Decompensation, Need For Continuous Telemetry Monitoring, Need for IV Antibiotics
[2017-02-24] MEDS: ALBUTEROL SULFATE HFA (90 MCG/PUFF) 200 PUFF/8.5 GM MDI IH SCH (18:30)
[2017-02-24] MEDS ORDERED: IPRATROPIUM BROMIDE HFA 17 MCG/PUFF 200 PUFF/12.9 GM MDI IH ONE (18:47)
[2017-02-24] MEDS: IPRATROPIUM BROMIDE HFA 17 MCG/PUFF 200 PUFF/12.9 GM MDI IH SCH (19:22)
[2017-02-24] MEDS: HYDRALAZINE HCL 25 MG TABLET PO SCH (21:27)
[2017-02-24] MEDS: METOPROLOL SUCCINATE 25 MG TAB.SR.24H PO SCH (21:27)
[2017-02-24] MEDS: ATORVASTATIN CALCIUM 40 MG TABLET PO SCH (21:27)
[2017-02-24] MEDS: MONTELUKAST SODIUM 10 MG TABLET PO SCH (21:27)
[2017-02-25] MEDS: HYDRALAZINE HCL INJ/PF 20 MG/1 ML SDV IV PRN (04:04)
[2017-02-25] MEDS: HYDROCODONE BIT/HOMATROPINE 5-1.5 MG TABLET PO PRN ×2 (04:04→15:15)
[2017-02-25 05:10] LABS: ANION GAP 9 (5-19); BLOOD UREA NITROGEN 30 mg/dL (7-20); CARBON DIOXIDE 32 mmol/L (22-30); CHLORIDE 99 mmol/L (98-107); GLUCOSE 105 mg/dL (75-110); POTASSIUM 5.4 mmol/L (3.6-5.0); SODIUM 140.4 mmol/L (137-145)
[2017-02-25] MEDS: HYDRALAZINE HCL 25 MG TABLET PO SCH ×3 (05:38→21:47)
[2017-02-25] MEDS: BENZONATATE 100 MG CAPSULE PO SCH ×3 (05:38→21:47)
[2017-02-25] MEDS: METHYLPREDNISOLONE INJ 125 MG/2 ML SDV IV SCH (05:38)
[2017-02-25] MEDS: LANSOPRAZOLE 15 MG TAB.RAP.DR PO SCH (05:38)
[2017-02-25] MEDS: BUDESONIDE NEB 0.5 MG/2 ML AMPUL NEB SCH ×2 (08:09→20:47)
[2017-02-25] MEDS: ENOXAPARIN SODIUM INJ 40 MG/0.4 ML DISP.SYRIN SUBCUT SCH (09:03)
[2017-02-25] MEDS: ALBUTEROL SULFATE HFA (90 MCG/PUFF) 200 PUFF/8.5 GM MDI IH SCH ×3 (09:04→18:29)
[2017-02-25] MEDS: AZITHROMYCIN 250 MG TABLET PO SCH (09:04)
[2017-02-25] MEDS: GUAIFENESIN 600 MG TABLET.SA PO SCH ×2 (09:05→21:47)
[2017-02-25] MEDS: METOPROLOL SUCCINATE 25 MG TAB.SR.24H PO SCH ×2 (09:05→21:47)
[2017-02-25] MEDS: IPRATROPIUM BROMIDE HFA 17 MCG/PUFF 200 PUFF/12.9 GM MDI IH SCH ×3 (09:06→18:30)
[2017-02-25] MEDS: NICOTINE 21 MG/24 HR PATCH.TD24 TD SCH (09:07)
[2017-02-25] MEDS: NITROGLYCERIN 2.5 MG (0.1 MG/HR) PATCH.TD24 TD SCH (09:08)
[2017-02-25] MEDS: DOCUSATE SODIUM 100 MG CAPSULE PO SCH (09:09)
[2017-02-25] MEDS ORDERED: HYDRALAZINE HCL INJ/PF 20 MG/1 ML SDV IV PRN (11:30)
--- NOTE | 2017-02-25 13:37 | XCELERA REPORT ---
[address] [address] Transthoracic Echocardiogram Report Name: PANKAJ SORTO Age: 61 yrs Gender: Male : 1955 Patient Status: Inpatient Patient Location: [address] [place] [address] Study Date: 02/25/2017 10:01 AM Height: 67 in Weight: 156 lb BSA: 1.8 m2 Procedure: A two-dimensional transthoracic echocardiogram with color flow and Doppler was performed. Study Quality: Fair. Reason For Study: SOB History: Shortness of breath. Ordering Physician: TIANNA CAMARA Performed By: Katya Gandhi Interpretation Summary Shortness of breath The left ventricle is normal in size. There is mild concentric left ventricular hypertrophy. LV EF is > than 60% Left ventricular systolic function is normal. Doppler measurements suggest impaired left ventricular relaxation, which is associated with grade I/IV or mild diastolic dysfunction The left ventricular wall motion is normal. There is no thrombus. There is no ventricular septal defect visualized. The right ventricle is grossly normal size. The right ventricle is not well visualized secondary to technical limitations The left atrial size is normal. There is mild mitral leaflet calcification. There is no evidence of mitral valve prolapse. There is no vegetation seen on the mitral valve. There is no mitral valve stenosis. There is a trace to mild amount of mitral regurgitation There is no aortic valve stenosis There is no LVOT obstruction. There is a mild to moderate amount of aortic regurgitation There is no tricuspid stenosis. There is a mild amount of tricuspid regurgitation No significant Pulmonary Hypertension.RVSP is 31 mm of Hg , with RA mean of 5. There is no pulmonic valvular stenosis. There is no pulmonic valvular regurgitation. The aortic root is mildly dilated There is no pericardial effusion. MMode/2D Measurements & Calculations RVDd: 3.4 cm LVIDd: 4.4 cm FS: 29.2 % Ao root diam: 3.9 cm IVSd: 1.2 cm LVIDs: 3.1 cm EDV(Teich): 88.6 ml LVPWd: 1.2 cm ESV(Teich): 38.7 ml Ao root area: 12.0 cm2 EF(Teich): 56.3 % LA dimension: 3.5 cm Doppler Measurements & Calculations MV E max yasmine: MV P1/2t max yasmine: Ao V2 max: LV V1 max P.6 cm/sec 69.1 cm/sec 167.5 cm/sec 5.0 mmHg MV A max yasmine: MV P1/2t: 56.9 msec Ao max PG: LV V1 max: 110.6 cm/sec 11.2 mmHg 112.1 cm/sec MV E/A: 0.61 MVA(P1/2t): 3.9 cm2 MV dec slope: 355.5 cm/sec2 PA V2 max: TR max yasmine: 101.2 cm/sec 253.8 cm/sec PA max P.1 mmHgTR max P.8 mmHg Left Ventricle The left ventricle is normal in size. There is mild concentric left ventricular hypertrophy. LV EF is > than 60%. Left ventricular systolic function is normal. Doppler measurements suggest impaired left ventricular relaxation, which is associated with grade I/IV or mild diastolic dysfunction. The left ventricular wall motion is normal. There is no thrombus. There is no ventricular septal defect visualized. Right Ventricle The right ventricle is grossly normal size. The right ventricle is not well visualized secondary to technical limitations. Atria The right atrium is normal. The left atrial size is normal. The interatrial septum is intact with no evidence for an atrial septal defect. Mitral Valve There is mild mitral leaflet calcification. There is no evidence of mitral valve prolapse. There is no vegetation seen on the mitral valve. There is no mitral valve stenosis. There is a trace to mild amount of mitral regurgitation. Aortic Valve There is no aortic valvular vegetation. There is no aortic valve stenosis. There is no LVOT obstruction. There is a mild to moderate amount of aortic regurgitation. Tricuspid Valve There is no tricuspid stenosis. There is a mild amount of tricuspid regurgitation. No significant Pulmonary Hypertension.RVSP is 31 mm of Hg , with RA mean of 5. Pulmonic Valve There is no pulmonic valvular stenosis. There is no pulmonic valvular regurgitation. Great Vessels The aortic root is mildly dilated. Effusions There is no pericardial effusion. : TIANNA CAMARA > Celeste Resendez
--- NOTE | 2017-02-25 13:39 | PDOC PROGRESS REPORT ---
Subjective Progress Note for:: 02/25/17 Subjective:: The patient is a 61-year-old male who presents to the hospital with essentially respiratory distress, and increased cough and hypertensive emergency. We presume that he has COPD although this has not been diagnosed. Yesterday, the patient has had intermittent elevations of his blood pressure. He has chest pain which appears to be secondary to coughing episodes plus minus the increase in his blood pressure. An echocardiogram has been ordered but is still pending. Admission troponins were slightly elevated but flat. Yesterday, I ordered more cycling troponins. The first 2 are normal. The third is positive at 0.02. Again, I think the patient's hypertension is driving the increase in troponin. In regards to his symptoms he states that he is not feeling much better. He is still severely dyspneic with minimal activity. Apparently, he tells me that he has had severely elevated blood pressure for at least 4 years. Unfortunately, he has not had access to care secondary to lack of insurance and lack of transportation. Reason For Visit: ACUTE BRONCHITIS,COPD EXACERBATON, HYPOXIA, Physical Exam Vital Signs: Temp Pulse Resp BP Pulse Ox 97.5 F 82 18 154/93 H 97 02/25/17 12:00 02/25/17 12:00 02/25/17 12:00 02/25/17 12:00 02/25/17 12:00 Intake & Output 02/24/17 02/25/17 02/26/17 06:59 06:59 06:59 Intake Total 2260 1090 Output Total 525 200 Balance 1735 890 Weight 70.8 kg 70.8 kg Additional comments: The patient appears to be moderately older than his stated age of 61. However, he is not in any distress. His cognition and mentation are appropriate. His facial appearance is unremarkable. His lungs demonstrate decreased breath sounds both anteriorly and posteriorly, however, I do not hear any adventitious sounds such as rales, rhonchi or wheezing. The cardiac exam is also distant but regular. I do not appreciate any murmurs, gallops or rubs. The abdomen is soft, flat and benign. The patient does not have any lower extremity edema. There are no skin lesions or rashes. Results Laboratory Results: 02/24/17 05:32 02/25/17 04:06 02/25/17 04:06 Sodium 140.4 Potassium 5.4 H Chloride 99 Carbon Dioxide 32 H Anion Gap 9 BUN 30 H Creatinine 1.37 H Est GFR ( Amer) > 60 Est GFR (Non-Af Amer) 53 L Glucose 105 Calcium 10.0 02/22/17 02/22/17 02/23/17 12:05 18:13 00:19 Troponin I 0.028 0.036 0.024 02/24/17 02/24/17 02/25/17 16:16 21:45 04:06 Troponin I < 0.012 < 0.012 0.020 Impressions: Chest X-Ray 02/21/17 12:43 IMPRESSION: NO SIGNIFICANT RADIOGRAPHIC FINDING IN THE CHEST. Chest/Abdomen CTA 02/22/17 00:00 IMPRESSION: No CT angio evidence of acute pulmonary emboli. Ascending aorta 4 cm in diameter with thickening of the left ventricular myocardium, correlate clinically for aortic stenosis Assessment & Plan - Diagnosis (1) Acute bronchitis Is this a current diagnosis for this admission?: Yes Plan: The patient is receiving antibiotics, systemic corticosteroids and bronchodilators. Patient prefers metered-dose inhalers over nebulizers. He states the nebulizers make him cough too much. Therefore, yesterday I did add albuterol MDI and Atrovent MDI.. He likely will require further testing to include pulmonary function testing at discharge and long-acting bronchodilators. (2) COPD exacerbation Is this a current diagnosis for this admission?: Yes Plan: See above (3) Chest pain Is this a current diagnosis for this admission?: Yes Plan: Chest pain is likely associated with the acute bronchitis and hypertensive emergency. Initial troponin sent yesterday are unremarkable. Echocardiogram has been ordered but not completed. (4) Hypertensive emergency Is this a current diagnosis for this admission?: Yes Plan: Yesterday, I increased the patient's oral medications. He is also receiving IV hydralazine. Do not want to increase his metoprolol any further secondary to a low heart rate. Also, I would avoid an NICK inhibitor or ARB secondary to hyperkalemia. This is mild and could get worse on NICK inhibitor therapy. His blood pressure is much improved when compared to yesterday. However, I may need to increase his hydralazine further. (5) Lactic acidosis Plan: This was very mildly elevated on admission. (6) Neutropenia Is this a current diagnosis for this admission?: Yes Plan: Resolved. (7) Renal failure Qualifiers: Renal failure chronicity: acute Is this a current diagnosis for this admission?: Yes Plan: We will continue to follow. Creatinine is stable. It is essential that we avoid nephrotoxins and dose meds accordingly. (8) Thrombocytopenia Is this a current diagnosis for this admission?: Yes Plan: Resolved (9) Acute hypoxemic respiratory failure Is this a current diagnosis for this admission?: Yes Plan: Patient is now on room air. (10) Tobacco abuse Is this a current diagnosis for this admission?: Yes Plan: Patient has been counseled on cessation. - Time Time Spent with patient: 25-34 minutes - Inpatient Certification Medical Necessity: Significant Comorbidiites Make Outpatient Treatment Too Risky , Need Close Monitoring Due to Risk of Patient Decompensation, Need For Continuous Telemetry Monitoring, Need for Nebulizer Therapy and Monitoring of Response
[2017-02-25] MEDS: ALBUTEROL SULFATE 0.083% NEB 2.5 MG/3 ML AMPUL NEB PRN (16:07)
[2017-02-25] MEDS: PREDNISONE 20 MG TABLET PO SCH (18:27)
[2017-02-25] MEDS: ATORVASTATIN CALCIUM 40 MG TABLET PO SCH (21:45)
[2017-02-25] MEDS: MONTELUKAST SODIUM 10 MG TABLET PO SCH (21:47)
[2017-02-26] MEDS: HYDRALAZINE HCL 25 MG TABLET PO SCH ×3 (05:21→22:40)
[2017-02-26] MEDS: LANSOPRAZOLE 15 MG TAB.RAP.DR PO SCH (05:21)
[2017-02-26] MEDS: BENZONATATE 100 MG CAPSULE PO SCH ×3 (05:21→22:41)
[2017-02-26 05:24] LABS: ANION GAP 7 (5-19); BLOOD UREA NITROGEN 36 mg/dL (7-20); CALCIUM 9.7 mg/dL (8.4-10.2); CARBON DIOXIDE 31 mmol/L (22-30); CHLORIDE 100 mmol/L (98-107); GLUCOSE 100 mg/dL (75-110); POTASSIUM 5.1 mmol/L (3.6-5.0); SODIUM 138.3 mmol/L (137-145)
[2017-02-26] MEDS: HYDROCODONE BIT/HOMATROPINE 5-1.5 MG TABLET PO PRN (05:26)
[2017-02-26] MEDS: ALBUTEROL SULFATE 0.083% NEB 2.5 MG/3 ML AMPUL NEB PRN (08:38)
[2017-02-26] MEDS: BUDESONIDE NEB 0.5 MG/2 ML AMPUL NEB SCH ×2 (08:39→19:38)
[2017-02-26] MEDS: DOCUSATE SODIUM 100 MG CAPSULE PO SCH (09:21)
[2017-02-26] MEDS: NICOTINE 21 MG/24 HR PATCH.TD24 TD SCH (09:21)
[2017-02-26] MEDS: METOPROLOL SUCCINATE 50 MG TAB.SR.24H PO SCH ×2 (09:21→22:41)
[2017-02-26] MEDS: NITROGLYCERIN 2.5 MG (0.1 MG/HR) PATCH.TD24 TD SCH (09:21)
[2017-02-26] MEDS: ENOXAPARIN SODIUM INJ 40 MG/0.4 ML DISP.SYRIN SUBCUT SCH (09:21)
[2017-02-26] MEDS: GUAIFENESIN 600 MG TABLET.SA PO SCH ×2 (09:21→22:41)
[2017-02-26] MEDS: PREDNISONE 20 MG TABLET PO SCH ×2 (09:21→17:50)
[2017-02-26] MEDS: ALBUTEROL SULFATE HFA (90 MCG/PUFF) 200 PUFF/8.5 GM MDI IH SCH ×3 (09:22→17:50)
[2017-02-26] MEDS: IPRATROPIUM BROMIDE HFA 17 MCG/PUFF 200 PUFF/12.9 GM MDI IH SCH ×3 (09:22→17:50)
--- NOTE | 2017-02-26 14:52 | PDOC PROGRESS REPORT ---
Subjective Progress Note for:: 02/26/17 Subjective:: The patient is a 61-year-old male who presents to the hospital with essentially respiratory distress, and increased cough and hypertensive emergency. We presume that he has COPD although this has not been diagnosed. Yesterday, the patient has had intermittent elevations of his blood pressure. He has chest pain which appears to be secondary to coughing episodes plus minus the increase in his blood pressure. An echocardiogram demonstrates EF 60% and grade 1 diastolic dysfunction.. Admission troponins were slightly elevated but flat. Yesterday, I ordered more cycling troponins. The first 2 are normal. The third is positive at 0.02. Again, I think the patient's hypertension is driving the increase in troponin. Appears that the patient has had severe, uncontrolled blood pressure issues for at least 4 years. See my note from yesterday. In any event I did add hydralazine to the metoprolol yesterday. Today, he states that the pills we are giving him are finally starting to make him feel better. He still severely dyspneic with activities but he is starting to improve. Pulmonary function testing has also been ordered. Reason For Visit: ACUTE BRONCHITIS,COPD EXACERBATON, HYPOXIA, Physical Exam Vital Signs: Temp Pulse Resp BP Pulse Ox 97.9 F 55 L 16 167/92 H 100 02/26/17 12:06 02/26/17 12:06 02/26/17 12:06 02/26/17 12:06 02/26/17 12:06 Intake & Output 02/25/17 02/26/17 02/27/17 06:59 06:59 06:59 Intake Total 1090 1860 Output Total 200 Balance 890 1860 Weight 70.8 kg 70.8 kg Additional comments: The patient is still extremely dyspneic even at rest, however, his speech is less distressed. His facial appearance is unremarkable. His lungs demonstrate extremely decreased breath sounds. His cardiac exam is distant but regular. I do not appreciate any murmurs, gallops or rubs. The abdomen is soft and flat. Bowel sounds are present. The lower extremities do not demonstrate any edema. The skin is clean, warm, dry and intact without lesions or rashes. Results Laboratory Results: 02/24/17 05:32 02/26/17 04:18 02/26/17 04:18 Sodium 138.3 Potassium 5.1 H Chloride 100 Carbon Dioxide 31 H Anion Gap 7 BUN 36 H Creatinine 1.33 H Est GFR ( Amer) > 60 Est GFR (Non-Af Amer) 54 L Glucose 100 Calcium 9.7 02/22/17 02/22/17 02/23/17 12:05 18:13 00:19 Troponin I 0.028 0.036 0.024 02/24/17 02/24/17 02/25/17 16:16 21:45 04:06 Troponin I < 0.012 < 0.012 0.020 Impressions: Chest X-Ray 02/21/17 12:43 IMPRESSION: NO SIGNIFICANT RADIOGRAPHIC FINDING IN THE CHEST. Chest/Abdomen CTA 02/22/17 00:00 IMPRESSION: No CT angio evidence of acute pulmonary emboli. Ascending aorta 4 cm in diameter with thickening of the left ventricular myocardium, correlate clinically for aortic stenosis Assessment & Plan - Diagnosis (1) Acute bronchitis Is this a current diagnosis for this admission?: Yes Plan: The patient is receiving antibiotics, systemic corticosteroids and bronchodilators. Patient prefers metered-dose inhalers over nebulizers. He states the nebulizers make him cough too much. Therefore, yesterday I did add albuterol MDI and Atrovent MDI. Pulmonary function testing was performed yesterday according to the patient. However, I am waiting for the results. This will help guide therapy. (2) COPD exacerbation Is this a current diagnosis for this admission?: Yes Plan: See above (3) Chest pain Is this a current diagnosis for this admission?: Yes Plan: Chest pain is likely associated with the acute bronchitis and hypertensive emergency. Additional troponins sent Saturday are unremarkable. Echocardiogram demonstrates an ejection fraction greater than 60% with grade 1 diastolic dysfunction which is not unexpected in severely uncontrolled hypertension. (4) Hypertensive emergency Is this a current diagnosis for this admission?: Yes Plan: 2 days ago hydralazine was added to the patient's regimen. Today, I did increase the patient's dose of metoprolol. His heart rate was between 75 and 90 overnight. After this morning's dose his heart rate is in the mid 50s but he appears to be tolerating this. If needed I will go up on hydralazine as well. (5) Lactic acidosis Plan: This was very mildly elevated on admission. (6) Neutropenia Is this a current diagnosis for this admission?: Yes Plan: Resolved. (7) Renal failure Qualifiers: Renal failure chronicity: acute Is this a current diagnosis for this admission?: Yes Plan: We will continue to follow. Creatinine is stable. It is essential that we avoid nephrotoxins and dose meds accordingly. Currently, I am avoiding NICK inhibitors and arms secondary to the kidney disease which is likely chronic and secondary to elevated potassiums. (8) Thrombocytopenia Is this a current diagnosis for this admission?: Yes Plan: Resolved (9) Acute hypoxemic respiratory failure Is this a current diagnosis for this admission?: Yes Plan: Patient is now on room air. (10) Tobacco abuse Is this a current diagnosis for this admission?: Yes Plan: Patient has been counseled on cessation. - Time Time Spent with patient: 15-24 minutes
[2017-02-26] MEDS: MONTELUKAST SODIUM 10 MG TABLET PO SCH (22:40)
[2017-02-26] MEDS: ATORVASTATIN CALCIUM 40 MG TABLET PO SCH (22:40)
[2017-02-27] MEDS: BENZONATATE 100 MG CAPSULE PO SCH ×3 (06:19→21:23)
[2017-02-27] MEDS: HYDRALAZINE HCL 25 MG TABLET PO SCH ×3 (06:19→21:23)
[2017-02-27] MEDS: LANSOPRAZOLE 15 MG TAB.RAP.DR PO SCH (06:19)
[2017-02-27 08:09] LABS: BLOOD UREA NITROGEN 37 mg/dL (7-20); CALCIUM 9.7 mg/dL (8.4-10.2); CARBON DIOXIDE 36 mmol/L (22-30); CHLORIDE 98 mmol/L (98-107); GLUCOSE 91 mg/dL (75-110); POTASSIUM 5.1 mmol/L (3.6-5.0); SODIUM 137.3 mmol/L (137-145)
[2017-02-27 08:13] LABS: ANION GAP 4 (5-19)
[2017-02-27] MEDS: BUDESONIDE NEB 0.5 MG/2 ML AMPUL NEB SCH ×2 (08:32→19:45)
[2017-02-27] MEDS: ENOXAPARIN SODIUM INJ 40 MG/0.4 ML DISP.SYRIN SUBCUT SCH (10:33)
[2017-02-27] MEDS: IPRATROPIUM BROMIDE HFA 17 MCG/PUFF 200 PUFF/12.9 GM MDI IH SCH ×3 (10:33→17:35)
[2017-02-27] MEDS: PREDNISONE 20 MG TABLET PO SCH ×2 (10:34→17:36)
[2017-02-27] MEDS: ALBUTEROL SULFATE HFA (90 MCG/PUFF) 200 PUFF/8.5 GM MDI IH SCH ×3 (10:34→17:36)
[2017-02-27] MEDS: METOPROLOL SUCCINATE 50 MG TAB.SR.24H PO SCH ×2 (10:34→21:23)
[2017-02-27] MEDS: DOCUSATE SODIUM 100 MG CAPSULE PO SCH (10:35)
[2017-02-27] MEDS: GUAIFENESIN 600 MG TABLET.SA PO SCH ×2 (10:35→21:23)
[2017-02-27] MEDS: NICOTINE 21 MG/24 HR PATCH.TD24 TD SCH (10:35)
[2017-02-27] MEDS: NITROGLYCERIN 2.5 MG (0.1 MG/HR) PATCH.TD24 TD SCH (10:36)
--- NOTE | 2017-02-27 15:29 | PDOC PROGRESS REPORT ---
Subjective Progress Note for:: 02/27/17 Subjective:: The patient is a 61-year-old male who presented to the hospital with essentially respiratory distress, and increased cough and hypertensive emergency. We presume that he has COPD although this has not been diagnosed. He has chest pain which appears to be secondary to coughing episodes plus minus the increase in his blood pressure. An echocardiogram demonstrates EF 60% and grade 1 diastolic dysfunction.. Admission troponins were slightly elevated but flat. Saturday, I ordered more cycling troponins. The first 2 are normal. The third is positive at 0.02. Again, I think the patient's hypertension is driving the increase in troponin. Appears that the patient has had severe, uncontrolled blood pressure issues for at least 4 years. See my note from yesterday. In any event I did add hydralazine metoprolol and I have been increasing his dose of metoprolol as tolerated. Today, he states that he is feeling better. However, he begins to get symptoms when doing minimal activity such as going to the bathroom. He feels that he needs to be discharged on oxygen. Today, we weaned him to room air. He does not meet criteria for supplemental oxygen at discharge. Pulmonary function testing was ordered yesterday. This was performed today but has not yet been interpreted. Reason For Visit: ACUTE BRONCHITIS,COPD EXACERBATON, HYPOXIA, Physical Exam Vital Signs: Temp Pulse Resp BP Pulse Ox 97.7 F 72 16 187/95 H 100 02/27/17 07:59 02/27/17 08:32 02/27/17 08:32 02/27/17 07:59 02/27/17 07:59 Intake & Output 02/26/17 02/27/17 02/28/17 06:59 06:59 06:59 Intake Total 1860 1020 Output Total 350 Balance 1860 670 Weight 70.8 kg 70.8 kg Additional comments: The patient continues to look dyspneic, but, he does appear to have improved over the last 48 hours. He sits forward in Fowlers position. His facial appearance is unremarkable. His lungs demonstrate severely reduced breath sounds throughout. His cardiac exam is distant but regular and I do not appreciate any murmurs, gallops or rubs. The abdomen is somewhat firm today. The patient tells me that he has been belching but has no abdominal pain and he has no guarding or rebound noted. His lower extremities are unremarkable without pitting edema. The skin is warm, dry and intact without lesions or rashes. Results Laboratory Results: 02/24/17 05:32 02/27/17 06:48 02/27/17 06:48 Sodium 137.3 Potassium 5.1 H Chloride 98 Carbon Dioxide 36 H Anion Gap 4 L BUN 37 H Creatinine 1.37 H Est GFR ( Amer) > 60 Est GFR (Non-Af Amer) 53 L Glucose 91 Calcium 9.7 02/21/17 16:15 Blood Blood Culture - Final NO GROWTH IN 5 DAYS 02/22/17 02/22/17 02/23/17 12:05 18:13 00:19 Troponin I 0.028 0.036 0.024 02/24/17 02/24/17 02/25/17 16:16 21:45 04:06 Troponin I < 0.012 < 0.012 0.020 Impressions: Chest X-Ray 02/21/17 12:43 IMPRESSION: NO SIGNIFICANT RADIOGRAPHIC FINDING IN THE CHEST. Chest/Abdomen CTA 02/22/17 00:00 IMPRESSION: No CT angio evidence of acute pulmonary emboli. Ascending aorta 4 cm in diameter with thickening of the left ventricular myocardium, correlate clinically for aortic stenosis Assessment & Plan - Diagnosis (1) Acute bronchitis Is this a current diagnosis for this admission?: Yes Plan: The patient is receiving antibiotics, systemic corticosteroids and bronchodilators. Patient prefers metered-dose inhalers over nebulizers. He states the nebulizers make him cough too much. Pulmonary function testing has been completed. This will help to guide therapy. Please note that the patient is illiterate. We need to try to minimize his medications as much as possible.. (2) COPD exacerbation Is this a current diagnosis for this admission?: Yes Plan: See above (3) Chest pain Is this a current diagnosis for this admission?: Yes Plan: Chest pain is likely associated with the acute bronchitis and hypertensive emergency. Additional troponins sent Saturday are unremarkable. Echocardiogram demonstrates an ejection fraction greater than 60% with grade 1 diastolic dysfunction which is not unexpected in severely uncontrolled hypertension. (4) Hypertensive emergency Is this a current diagnosis for this admission?: Yes Plan: 3 days ago hydralazine was added to the patient's regimen. Yesterday, I did increase the patient's dose of metoprolol. His heart rate appears to be tolerating the increase in metoprolol. He does have some dips into the 50s but in general he is in the 70s. Today, his blood pressure remains uncontrolled and I am going to increase the hydralazine. I have not added an NICK or ARB due to chronic kidney disease with hyperkalemia. (5) Lactic acidosis Plan: This was very mildly elevated on admission. (6) Neutropenia Is this a current diagnosis for this admission?: Yes Plan: Resolved. (7) Renal failure Qualifiers: Renal failure chronicity: acute Is this a current diagnosis for this admission?: Yes Plan: We will continue to follow. Creatinine is stable. It is essential that we avoid nephrotoxins and dose meds accordingly. Currently, I am avoiding NICK inhibitors and ARBs secondary to the kidney disease which is likely chronic and secondary to elevated potassiums. (8) Thrombocytopenia Is this a current diagnosis for this admission?: Yes Plan: Resolved (9) Acute hypoxemic respiratory failure Is this a current diagnosis for this admission?: Yes Plan: Patient is now on room air. Again, the patient does not meet criteria to order supplemental oxygen at discharge. (10) Tobacco abuse Is this a current diagnosis for this admission?: Yes Plan: Patient has been counseled on cessation. - Time Time Spent with patient: 15-24 minutes - Plan Summary Plan Summary: The patient is nearing the point where he can be safely discharged. However, his systolic blood pressures are still greater than 180. I am going to increase his blood pressure medication today. Also, his pulmonary function testing is still outstanding. He will likely need a simple bronchodilator regimen upon discharge. Also note that the patient is illiterate. I have asked discharge planning to arrange for home health. The patient will need help with getting his medications arranged. He will also need to follow-up with a provider in [place] because he does not have transportation to distant cities. He only has a scooter.
--- NOTE | 2017-02-27 15:54 | PULMONARY FUNCTION TEST ---
DATE OF SERVICE: 02/26/2016 THE VITAL CAPACITY IS MODERATELY DECREASED. THE EXPIRATORY FLOW RATES ARE SEVERELY DECREASED. THE FEV1/VC IS 33%, PREDICTED: 80% IMPRESSION: THE EXPIRATORY LIMB OF THE F-V LOOP WAS POORLY PERFORMED. THE EXPIRATORY SPIROGRAM WAS SATISFACTORY AND SHOWS A VERY SEVERE OBSTRUCTIVE DEFECT. CC: CRISTIANA ROSSI MD > COREYD
[2017-02-27] MEDS: HYDROCODONE BIT/HOMATROPINE 5-1.5 MG TABLET PO PRN ×2 (17:42→23:34)
[2017-02-27] MEDS: ATORVASTATIN CALCIUM 40 MG TABLET PO SCH (21:23)
[2017-02-27] MEDS: MONTELUKAST SODIUM 10 MG TABLET PO SCH (21:23)
[2017-02-28] MEDS: LANSOPRAZOLE 15 MG TAB.RAP.DR PO SCH (05:14)
[2017-02-28] MEDS: BENZONATATE 100 MG CAPSULE PO SCH ×3 (05:14→21:27)
[2017-02-28] MEDS: HYDRALAZINE HCL 25 MG TABLET PO SCH ×3 (05:14→21:28)
[2017-02-28] MEDS: BUDESONIDE NEB 0.5 MG/2 ML AMPUL NEB SCH ×2 (08:18→19:31)
[2017-02-28 08:36] LABS: ANION GAP 8 (5-19); BLOOD UREA NITROGEN 31 mg/dL (7-20); CALCIUM 9.8 mg/dL (8.4-10.2); CARBON DIOXIDE 32 mmol/L (22-30); CHLORIDE 98 mmol/L (98-107); GLUCOSE 88 mg/dL (75-110); POTASSIUM 4.9 mmol/L (3.6-5.0); SODIUM 137.8 mmol/L (137-145)
[2017-02-28] MEDS: ENOXAPARIN SODIUM INJ 40 MG/0.4 ML DISP.SYRIN SUBCUT SCH (09:43)
[2017-02-28] MEDS: ALBUTEROL SULFATE HFA (90 MCG/PUFF) 200 PUFF/8.5 GM MDI IH SCH ×3 (09:51→17:20)
[2017-02-28] MEDS: DOCUSATE SODIUM 100 MG CAPSULE PO SCH (09:52)
[2017-02-28] MEDS: NITROGLYCERIN 2.5 MG (0.1 MG/HR) PATCH.TD24 TD SCH (09:52)
[2017-02-28] MEDS: IPRATROPIUM BROMIDE HFA 17 MCG/PUFF 200 PUFF/12.9 GM MDI IH SCH ×3 (09:52→17:20)
[2017-02-28] MEDS: GUAIFENESIN 600 MG TABLET.SA PO SCH ×2 (09:52→21:28)
[2017-02-28] MEDS: NICOTINE 21 MG/24 HR PATCH.TD24 TD SCH (09:52)
[2017-02-28] MEDS: PREDNISONE 20 MG TABLET PO SCH ×2 (09:52→17:20)
[2017-02-28] MEDS: METOPROLOL SUCCINATE 50 MG TAB.SR.24H PO SCH ×2 (09:52→21:27)
[2017-02-28] MEDS: HYDROCODONE BIT/HOMATROPINE 5-1.5 MG TABLET PO PRN (12:58)
--- NOTE | 2017-02-28 16:44 | PDOC PROGRESS REPORT ---
Subjective Progress Note for:: 02/28/17 Subjective:: The patient is a 61 year old male with no stated past medical history who was admitted on 02/21/17 for dyspnea and hypertensive urgency. He has been supported with supplemental oxygen, albuterol and Atrovent inhalers, steroids, mucinex and singulair. His blood pressures have been managed with metoprolol and hydralazine, though remain elevated. The patient is seen on rounds; he is found sitting up to the edge of his bed preparing to eat his lunch. He complains of a persistent non-productive cough. He states that his breathing has improved and notes that he has been ambulatory and conversational without shortness of breath. Reason For Visit: ACUTE BRONCHITIS,COPD EXACERBATON, HYPOXIA, Physical Exam Vital Signs: Temp Pulse Resp BP Pulse Ox 97.8 F 75 16 188/101 H 97 02/28/17 11:59 02/28/17 14:00 02/28/17 11:59 02/28/17 11:59 02/28/17 11:59 Intake & Output 02/27/17 02/28/17 03/01/17 06:59 06:59 06:59 Intake Total 1020 1580 355 Output Total 350 363 Balance 670 1217 355 Weight 70.8 kg 70.8 kg General appearance: PRESENT: no acute distress, well-developed, well-nourished Head exam: PRESENT: atraumatic, normocephalic Eye exam: PRESENT: conjunctiva pink, EOMI, PERRLA. ABSENT: scleral icterus Ear exam: PRESENT: normal external ear exam Mouth exam: PRESENT: moist, tongue midline Neck exam: ABSENT: carotid bruit, JVD, lymphadenopathy, thyromegaly Respiratory exam: PRESENT: decreased breath sounds - bibasilar, prolonged expiratory phas, symmetrical, unlabored, wheezes. ABSENT: rales, rhonchi Cardiovascular exam: PRESENT: RRR, +S1, +S2. ABSENT: diastolic murmur, rubs, systolic murmur Pulses: PRESENT: normal dorsalis pedis pul Vascular exam: PRESENT: normal capillary refill GI/Abdominal exam: PRESENT: normal bowel sounds, soft. ABSENT: distended, guarding, mass, organolmegaly, rebound, tenderness Rectal exam: PRESENT: deferred Extremities exam: PRESENT: full ROM. ABSENT: calf tenderness, clubbing, pedal edema Neurological exam: PRESENT: alert, awake, oriented to person, oriented to place , oriented to time, oriented to situation, CN II-XII grossly intact. ABSENT: motor sensory deficit Psychiatric exam: PRESENT: appropriate affect, normal mood. ABSENT: homicidal ideation, suicidal ideation Skin exam: PRESENT: dry, intact, warm. ABSENT: cyanosis, rash Results Laboratory Results: 02/24/17 05:32 02/28/17 06:58 02/28/17 06:58 Sodium 137.8 Potassium 4.9 Chloride 98 Carbon Dioxide 32 H Anion Gap 8 BUN 31 H Creatinine 1.23 Est GFR ( Amer) > 60 Est GFR (Non-Af Amer) > 60 Glucose 88 Calcium 9.8 02/22/17 02/22/17 02/23/17 12:05 18:13 00:19 Troponin I 0.028 0.036 0.024 02/24/17 02/24/17 02/25/17 16:16 21:45 04:06 Troponin I < 0.012 < 0.012 0.020 Impressions: Chest X-Ray 02/21/17 12:43 IMPRESSION: NO SIGNIFICANT RADIOGRAPHIC FINDING IN THE CHEST. Chest/Abdomen CTA 02/22/17 00:00 IMPRESSION: No CT angio evidence of acute pulmonary emboli. Ascending aorta 4 cm in diameter with thickening of the left ventricular myocardium, correlate clinically for aortic stenosis Assessment & Plan - Diagnosis (1) Acute bronchitis Is this a current diagnosis for this admission?: Yes Plan: Improved. The patient no longer requires supplemental oxygen and is conversational and ambulatory without dyspnea. The patient is receiving systemic corticosteroids, inhaled steroids, and bronchodilators. The patient prefers meter-dosed inhalers over nebulizers; stating that nebulizers cause him to cough. Pulmonary function test was obtained yesterday and reveals severe obstruction. He is placed on LAMA-LABA for maintenance therapy. (2) COPD exacerbation Is this a current diagnosis for this admission?: Yes Plan: Plan as above. (3) Chest pain Is this a current diagnosis for this admission?: Yes Plan: Likely associated to the acute bronchitis as the pain is associated with coughing episodes. A second set of troponins are negative. An echocardiogram demonstrates an ejection fraction greater than 60% with grade 1 diastolic dysfunction. (4) Hypertensive emergency Is this a current diagnosis for this admission?: Yes Plan: The patient has been started on hydralazine and metoprolol with both medications subsequently requiring increases. Pt's HR now in the low 60s to 80s , therefore would not recommend further increases of metoprolol. The patient's blood pressure today was 185/105. Will add Imdur. (5) Lactic acidosis Is this a current diagnosis for this admission?: Yes Plan: Mildly elevated on admission; likely secondary to COPD exacerbation and accelerated HTN. (6) Neutropenia Is this a current diagnosis for this admission?: Yes Plan: Resolved. (7) Renal failure Qualifiers: Renal failure chronicity: acute Is this a current diagnosis for this admission?: Yes Plan: Resolved. Creatinine now at 1.23 with eGFR >60. Will avoid nephrotoxic medications. Avoid NICK/ARB secondary to recent JUSTICE with hyperkalemia. (8) Thrombocytopenia Is this a current diagnosis for this admission?: Yes Plan: Resolved. (9) Acute hypoxemic respiratory failure Is this a current diagnosis for this admission?: Yes Plan: Resolved. Now on room air; does not qualify for home oxygen. (10) Tobacco abuse Is this a current diagnosis for this admission?: Yes Plan: Smoking cessation encouraged and nicotine replacement therapy is provided. - Time Time Spent with patient: 25-34 minutes Anticipated discharge: Home Within: within 48 hours
[2017-02-28] MEDS: ATORVASTATIN CALCIUM 40 MG TABLET PO SCH (21:27)
[2017-02-28] MEDS: MONTELUKAST SODIUM 10 MG TABLET PO SCH (21:28)
[2017-02-28] MEDS: SALMETEROL XINAFOATE DISKUS 50 MCG/1 DOSE 28 DOSE IH SCH (21:28)
[2017-02-28] MEDS ORDERED: ISOSORBIDE MONONITRATE 30 MG TAB.ER.24H PO SCH (22:00)
[2017-02-28] MEDS ORDERED: NITROGLYCERIN 0.4 MG/TAB 25 TAB/BOTTLE SL PRN (23:40)
[2017-02-28] MEDS ORDERED: NITROGLYCERIN 0.4 MG/TAB 25 TAB/BOTTLE SL ONE (23:40)
[2017-02-28] MEDS ORDERED: ENALAPRILAT DIHYDRATE INJ/PF 1.25 MG/1 ML SDV IV ONE (23:40)
[2017-03-01 00:32] LABS: CREATINE KINASE MB 1.24 ng/mL (<4.55)
[2017-03-01 00:36] LABS: TROPONIN I < 0.012 ng/mL
[2017-03-01] MEDS: BENZONATATE 100 MG CAPSULE PO SCH ×2 (05:37→14:09)
[2017-03-01] MEDS: HYDRALAZINE HCL 25 MG TABLET PO SCH ×2 (05:37→14:08)
[2017-03-01] MEDS: LANSOPRAZOLE 15 MG TAB.RAP.DR PO SCH (05:37)
[2017-03-01 07:26] LABS: ANION GAP 7 (5-19); BLOOD UREA NITROGEN 27 mg/dL (7-20); CALCIUM 9.9 mg/dL (8.4-10.2); CARBON DIOXIDE 32 mmol/L (22-30); CHLORIDE 99 mmol/L (98-107); CREATINE KINASE 42 U/L (55-170); GLUCOSE 119 mg/dL (75-110); POTASSIUM 4.8 mmol/L (3.6-5.0); SODIUM 137.6 mmol/L (137-145)
[2017-03-01 07:37] LABS: CREATINE KINASE MB 1.16 ng/mL (<4.55)
[2017-03-01 07:40] LABS: TROPONIN I < 0.012 ng/mL
[2017-03-01] MEDS: BUDESONIDE NEB 0.5 MG/2 ML AMPUL NEB SCH (08:17)
--- NOTE | 2017-03-01 09:41 | EKG REPORT ---
SEVERITY:- ABNORMAL ECG - SINUS RHYTHM LEFT ANTERIOR FASCICULAR BLOCK : Confirmed by: Pierre Tinoco 01-Mar-2017 09:40:48
[2017-03-01] MEDS ORDERED: TIOTROPIUM BROMIDE DPI 5 CAP/KIT (18 MCG/CAP) IH SCH (10:00)
[2017-03-01] MEDS: GUAIFENESIN 600 MG TABLET.SA PO SCH (10:46)
[2017-03-01] MEDS: METOPROLOL SUCCINATE 50 MG TAB.SR.24H PO SCH (10:46)
[2017-03-01] MEDS: DOCUSATE SODIUM 100 MG CAPSULE PO SCH (10:46)
[2017-03-01] MEDS: NICOTINE 21 MG/24 HR PATCH.TD24 TD SCH (10:47)
[2017-03-01] MEDS: PREDNISONE 20 MG TABLET PO SCH (10:47)
[2017-03-01] MEDS: ENOXAPARIN SODIUM INJ 40 MG/0.4 ML DISP.SYRIN SUBCUT SCH (10:48)
[2017-03-01] MEDS: ALBUTEROL SULFATE HFA (90 MCG/PUFF) 200 PUFF/8.5 GM MDI IH SCH ×2 (10:52→14:11)
[2017-03-01] MEDS: IPRATROPIUM BROMIDE HFA 17 MCG/PUFF 200 PUFF/12.9 GM MDI IH SCH ×2 (10:52→14:11)
[2017-03-01] MEDS: SALMETEROL XINAFOATE DISKUS 50 MCG/1 DOSE 28 DOSE IH SCH (10:53)
[2017-03-01 12:20] LABS: CREATINE KINASE MB 1.21 ng/mL (<4.55)
[2017-03-01 12:23] LABS: TROPONIN I < 0.012 ng/mL
[2017-03-01 12:58] VITALS: BP 150/80
--- NOTE | 2017-03-01 13:52 | PDOC DISCHARGE SUMMARY ---
General - Admit/Disc Date/PCP Admission Date/Primary Care Provider: 02/21/17 14:49 Discharge Date: 03/01/17 - Discharge Diagnosis (1) Acute bronchitis Is this a current diagnosis for this admission?: Yes (2) COPD exacerbation Is this a current diagnosis for this admission?: Yes Summary: PFT shows very severe obstructive defect with a FEV1/VC of 33%, Predicted 80%. (3) Chest pain Is this a current diagnosis for this admission?: Yes (4) Hypertensive emergency Is this a current diagnosis for this admission?: Yes (5) Lactic acidosis Is this a current diagnosis for this admission?: Yes (6) Neutropenia Is this a current diagnosis for this admission?: Yes (7) Renal failure Is this a current diagnosis for this admission?: Yes (8) Thrombocytopenia Is this a current diagnosis for this admission?: Yes (9) Acute hypoxemic respiratory failure Is this a current diagnosis for this admission?: Yes (10) Tobacco abuse Is this a current diagnosis for this admission?: Yes - Additional Information Resuscitation Status: Full Code Discharge Diet: Cardiac Discharge Activity: Activity As Tolerated, Walk Frequently Prescriptions: Albuterol Sulfate [Proair HFA Inhalation Aerosol 8.5 gm MDI] 2 puff IH Q6HP PRN #1 hfa.aer.ad PRN Reason: Shortness Of Breath Atorvastatin Calcium [Lipitor 40 mg Tablet] 40 mg PO QHS #30 tablet Guaifenesin [Mucinex Sr 600 mg Tablet.sa] 600 mg PO Q12 #30 tablet.sa Hydralazine HCl [Apresoline 25 mg Tablet] 50 mg PO Q8 #90 tablet Hydrocodone Bit/Homatropine [Hycodan 5-1.5 mg Tablet] 1 tab PO Q6HP PRN #12 tablet PRN Reason: Cough Ipratropium Erath [Atrovent Hfa Inhalation Aerosol 12.9 gm Mdi] 4 puff IH Q6HP PRN #1 inhaler PRN Reason: Shortness Of Breath Isosorbide Mononitrate [Imdur 30 mg Tablet.er] 30 mg PO QHS #30 tab.er.24h Lansoprazole [Prevacid 15 mg Odt Tablet] 15 mg PO Q6AM #30 tab. Metoprolol Succinate [Toprol Xl 50 mg Tab.sr] 50 mg PO Q12 #60 tab.sr.24h Montelukast Sodium [Singulair 10 mg Tablet] 10 mg PO QHS #30 tablet Nicotine [Nicoderm 21 mg/24 Hr Transderm Patch] 1 each TD DAILY #14 patch.td24 Prednisone [Deltasone 20 mg Tablet] 20 mg PO BID #8 tablet Salmeterol Xinafoate [Serevent Diskus 50 Mcg/Dose 28 Dose/Diskus] 50 mcg IH Q12 #1 disk Tiotropium Erath [Spiriva Handihaler 5 Cap/Kit (18 Mcg/Cap)] 1 cap IH DAILY # 1 kit Home Medications: Albuterol Sulfate [Proair HFA Inhalation Aerosol 8.5 gm MDI] 2 puff IH Q6HP PRN #1 hfa.aer.ad 03/01/17 Atorvastatin Calcium [Lipitor 40 mg Tablet] 40 mg PO QHS #30 tablet 03/01/17 Guaifenesin [Mucinex Sr 600 mg Tablet.sa] 600 mg PO Q12 #30 tablet.sa 03/01/17 Hydralazine HCl [Apresoline 25 mg Tablet] 50 mg PO Q8 #90 tablet 03/01/17 Hydrocodone Bit/Homatropine [Hycodan 5-1.5 mg Tablet] 1 tab PO Q6HP PRN #12 tablet 03/01/17 Ipratropium Erath [Atrovent Hfa Inhalation Aerosol 12.9 gm Mdi] 4 puff IH Q6HP PRN #1 inhaler 03/01/17 Isosorbide Mononitrate [Imdur 30 mg Tablet.er] 30 mg PO QHS #30 tab.er.24h 03/01 Lansoprazole [Prevacid 15 mg Odt Tablet] 15 mg PO Q6AM #30 tab.rap.dr 03/01/17 Metoprolol Succinate [Toprol Xl 50 mg Tab.sr] 50 mg PO Q12 #60 tab.sr.24h Montelukast Sodium [Singulair 10 mg Tablet] 10 mg PO QHS #30 tablet 03/01/17 Nicotine [Nicoderm 21 mg/24 Hr Transderm Patch] 1 each TD DAILY #14 patch.td24 03/01/17 Prednisone [Deltasone 20 mg Tablet] 20 mg PO BID #8 tablet 03/01/17 Salmeterol Xinafoate [Serevent Diskus 50 Mcg/Dose 28 Dose/Diskus] 50 mcg IH Q12 #1 disk 03/01/17 Tiotropium Erath [Spiriva Handihaler 5 Cap/Kit (18 Mcg/Cap)] 1 cap IH DAILY # 1 kit 03/01/17 History of Present Illness History of Present Illness: Per H&P by Dr. Marcos: PANKAJ SORTO is a 61 year old male with a past medical history. Patient does not follow with a PCP however patient does not have an extensive smoking history. Patient states he has been smoking since age of 16. Patient was evaluated late last year with possible COPD exacerbation although not formally diagnosed. Patient states he was doing well until couple of days ago when he was outside scraping off the snow off his mother's and brothers porch. Patient states after that he developed a cold and abdominal discomfort. Patient states that it took him over 4 hours to wash his entire body because he continued to be short of breath. He states that he is unable to lie down without becoming short of breath. Patient has a cough however it is not productive. Patient denies taking any medications or seeing a doctor. Patient states he takes BC powders for his headaches. In the ED patient was noted to be hypertensive with blood pressures 202/128. Patient was also noted to be hypoxic down to 84 with ambulating. Patient still extremely short of breath in spite of being given steroids and breathing treatments. Attempts were made to send patient for CT scan however he is unable to lie flat. Is admitted for presumed COPD exacerbation. Hospital Course Hospital Course: The patient was admitted with acute hypoxic respiratory failure secondary to a COPD exacerbation with acute bronchitis. He was placed on supplemental oxygen, IV Solu-Medrol, azithromycin, nebulizer treatments, Mucinex and Singulair. PFT showed very severe obstructive disease. He was placed on Spiriva and Serevent for maintenance therapy to be continued after discharge. The patient was also noted to have hypertensive emergency with chest pain associated with his coughing spells. He had three separate sets of cardiac enzymes all of which were within normal limits. An echocardiogram was obtained demonstrating an LVEF greater than 60% with mild diastolic dysfunction. His chest pain was determined to not be cardiac in nature and is most likely to be costochondritis. Patient's blood pressures were managed with metoprolol, hydralazine, and Imdur. His acute kidney injury resolved with judicious IV fluids and control of his blood pressure. On day of discharge, the patient is in stable condition, pain-free, maintaining oxygen saturations while on room air, and with appropriatly controlled blood pressures. He states that he is pain-free He has been established with outpatient pharmacy home services and home health nursing. Physical Exam Vital Signs: Temp Pulse Resp BP Pulse Ox 97.5 F 69 18 150/80 H 98 03/01/17 11:10 03/01/17 11:10 03/01/17 11:10 03/01/17 12:00 03/01/17 11:10 Intake & Output 02/28/17 03/01/17 03/02/17 06:59 06:59 06:59 Intake Total 1580 615 Output Total 363 350 Balance 1217 265 Weight 70.8 kg 70.8 kg General appearance: PRESENT: no acute distress, well-developed, well-nourished Head exam: PRESENT: atraumatic, normocephalic Eye exam: PRESENT: conjunctiva pink, EOMI, PERRLA. ABSENT: scleral icterus Ear exam: PRESENT: normal external ear exam Mouth exam: PRESENT: moist, tongue midline Neck exam: ABSENT: carotid bruit, JVD, lymphadenopathy, thyromegaly Respiratory exam: PRESENT: clear to auscultation erickson. ABSENT: rales, rhonchi, wheezes Cardiovascular exam: PRESENT: RRR. ABSENT: diastolic murmur, rubs, systolic murmur Pulses: PRESENT: normal dorsalis pedis pul Vascular exam: PRESENT: normal capillary refill GI/Abdominal exam: PRESENT: normal bowel sounds, soft. ABSENT: distended, guarding, mass, organolmegaly, rebound, tenderness Rectal exam: PRESENT: deferred Extremities exam: PRESENT: full ROM. ABSENT: calf tenderness, clubbing, pedal edema Neurological exam: PRESENT: alert, awake, oriented to person, oriented to place , oriented to time, oriented to situation, CN II-XII grossly intact. ABSENT: motor sensory deficit Psychiatric exam: PRESENT: appropriate affect, normal mood. ABSENT: homicidal ideation, suicidal ideation Skin exam: PRESENT: dry, intact, warm. ABSENT: cyanosis, rash Results Laboratory Results: 02/24/17 05:32 03/01/17 05:57 03/01/17 05:57 Sodium 137.6 Potassium 4.8 Chloride 99 Carbon Dioxide 32 H Anion Gap 7 BUN 27 H Creatinine 1.32 H Est GFR ( Amer) > 60 Est GFR (Non-Af Amer) 55 L Glucose 119 H Calcium 9.9 02/22/17 02/22/17 02/23/17 12:05 18:13 00:19 Creatine Kinase CK-MB (CK-2) Troponin I 0.028 0.036 0.024 02/24/17 02/24/17 02/25/17 16:16 21:45 04:06 Creatine Kinase CK-MB (CK-2) Troponin I < 0.012 < 0.012 0.020 02/28/17 02/28/17 03/01/17 23:51 23:51 05:57 Creatine Kinase 49 L 42 L CK-MB (CK-2) 1.24 Troponin I < 0.012 03/01/17 03/01/17 03/01/17 05:57 11:37 11:37 Creatine Kinase 46 L CK-MB (CK-2) 1.16 1.21 Troponin I < 0.012 < 0.012 Impressions: Chest X-Ray 02/21/17 12:43 IMPRESSION: NO SIGNIFICANT RADIOGRAPHIC FINDING IN THE CHEST. Chest/Abdomen CTA 02/22/17 00:00 IMPRESSION: No CT angio evidence of acute pulmonary emboli. Ascending aorta 4 cm in diameter with thickening of the left ventricular myocardium, correlate clinically for aortic stenosis Qualifiers PATEINT BEING DISCHARGED WITH ANY OF THE FOLLOWING DIAGNOSIS?: No Plan Discharge Plan: D/C to home with home health nursing services. Time Spent: Less than 30 Minutes
[2017-03-01] MEDS ORDERED: INFLUENZA ADLT QUAD (36MOS+) 2017-18 VAC 0.5 ML SYR IM PRN (14:18)
== END 2017-03-01 16:00 | disposition home health service (06) | DRG 190 ==
LOC: ER 10:25 → EH 14:49 → 5 18:17
PROVIDERS: ADMIT Emergency Medicine; ATTEND Emergency Medicine
PROC: 3E0234Z Introduction of Serum, Toxoid and Vaccine into Muscle, Percutaneous Approach (ICD-10-PCS; principal; 2017-03-01)
DX: J44.0 Chronic obstructive pulmonary disease with (acute) lower respiratory infection (principal); J96.01 Acute respiratory failure with hypoxia; E87.2 Acidosis; J44.1 Chronic obstructive pulmonary disease with (acute) exacerbation; J20.9 Acute bronchitis, unspecified; I16.0 Hypertensive urgency; I12.9 Hypertensive chronic kidney disease with stage 1 through stage 4 chronic kidney disease, or unspecified chronic kidney disease; N18.3 Chronic kidney disease, stage 3 (moderate); D70.9 Neutropenia, unspecified; D69.6 Thrombocytopenia, unspecified; F17.210 Nicotine dependence, cigarettes, uncomplicated; Z23 Encounter for immunization
CPT/HCPCS: 36415; 36600; 71046; 71275; 80048; 80053; 80061; 80307; 81001; 82550; 82553; 82803; 83036; 83605; 83735; 83880; 84484; 85025; 85610; 85730; 87040; 90686; 93005; 93010; 93306; 94010; 94640; 94667; 94799; 96374; 96375; 99291; J0360; J0696; J1650; J2060; J2930; J3490; J7050; J7120; J7512; J7620

== ENCOUNTER 2017-07-18 09:27 | Day surgery (SDC) | payer MEDICAID ==
[~2017-07-18 09:27] MED LIST: BESIFLOXACIN HCL 0.6% OPH SUSP 5 ML BOTTLE OS PRN; CHONDR SU A NA/HYALUR INTRAOC KIT (SURGICARE) ONE; CYCLOPENTOLATE 0.2%/PHENYLEPHRINE 1% OPH SOLN 2 ML OS PRN; EPINEPHRINE INJ/PF 1 MG/1 ML AMPULE ONE; KETOROLAC TROMETHAMINE 0.45% 4 DROP/0.4 ML DROPERETTE OS PRN; LIDOCAINE 1% INJ-PF (10 MG/ML) 30 ML SDV ONE; TETRACAINE HCL 0.5% OPH SOLN 2 ML OS PRN; TROPICAMIDE 1% OPH SOLN 3 ML OS PRN
[2017-07-18] MEDS: TETRACAINE HCL 0.5% OPH SOLN 2 ML OS PRN ×3 (10:25→11:06)
[2017-07-18] MEDS: TROPICAMIDE 1% OPH SOLN 3 ML OS PRN ×3 (10:25→10:48)
[2017-07-18] MEDS: CYCLOPENTOLATE 0.2%/PHENYLEPHRINE 1% OPH SOLN 2 ML OS PRN ×3 (10:25→10:48)
[2017-07-18] MEDS: BESIFLOXACIN HCL 0.6% OPH SUSP 5 ML BOTTLE OS PRN ×4 (10:26→11:36)
[2017-07-18] MEDS ORDERED: FENTANYL CITRATE INJ/PF 100 MCG/2 ML AMPUL ONE (11:10)
[2017-07-18] MEDS ORDERED: MIDAZOLAM 2 MG/2 ML INJ ONE (11:10)
--- NOTE | 2017-07-18 19:49 | [facility] OPERATIVE REPORT E ---
[facility] Operative Report NAME: PANKAJ SORTO AGE: 62Y DATE OF SURGERY: 07/18/2017 ROOM: PREOPERATIVE DIAGNOSIS: CATARACT, LEFT EYE. POSTOPERATIVE DIAGNOSIS: CATARACT, LEFT EYE. OPERATION: Cataract extraction with insertion of an IOL of the left eye. SURGEON: VALENTIN SOOD M.D. ANESTHESIA: Topical. PROCEDURE: After obtaining appropriate consent, the patient's left eye was prepped and draped in sterile fashion as well as the surgeon in a sterile manner and cataract surgery was started. First a paracentesis blade was used to make a side-port incision. Viscoelastic was used to inflate the anterior chamber. Next a 2.4 mm incision was made with a 2.4 mm blade, clear corneal temporally. A continuous capsulorrhexis was made using a cystotome and Utrata forceps. Following this hydrodissection was carried out to make the lens fully loose and mobile and it was rotated 90 degrees. Following this, a [id number] technique was used to phacoemulsify the lens with a CDE of 28.96. The remaining cortex was removed with irrigation/aspiration. Provisc was instilled into the capsular bag to inflate the bag. A SN60WF, 19.0 diopter lens was placed. The remaining viscoelastic material was removed with irrigation/aspiration. Following this, the incision was found to be watertight. Besivance was instilled into the eye and a protective shield was placed over the eye. The patient returned to the postoperative recovery in stable condition. DICTATING PHYSICIAN: VALENTIN SOOD M.D. [id number] PHY#: [id number] ID: [id number] JOB#: [id number] ACCT: [id number] cc:VALENTIN SOOD M.D. >
--- NOTE | 2017-07-18 19:55 | DISCHARGE SUMMARY E ---
Discharge Summary NAME: PANKAJ SORTO : 1955 AGE: 62Y ADMITTED: 07/18/2017 DISCHARGED: 07/18/2017 HOSPITAL COURSE: This is a 62-year-old female who underwent cataract extraction of the left eye. DIAGNOSIS: Cataract, left eye. He underwent surgery because he was having difficulty making out facial features and trouble seeing his own signature. DISCHARGE INSTRUCTIONS: He is to be on a regular diet. No bending at his waist, no heavy lifting. He should use his Besivance, Ilevro, and Durezol at 3 p.m. and 8 p.m. and sleep with a rigid shield. I will see him for a 1 day postoperative tomorrow. DICTATING PHYSICIAN: VALENTIN SOOD M.D. [id number] PHY#: [id number] ID: [id number] JOB#: [id number] ACCT: [id number] cc:VALENTIN SOOD M.D. >
== END 2017-07-18 12:49 | disposition home or self-care (01) ==
LOC: SC 09:27
PROVIDERS: ATTEND Internal Medicine
DX: H25.042 Posterior subcapsular polar age-related cataract, left eye (principal); H25.11 Age-related nuclear cataract, right eye; H40.023 Open angle with borderline findings, high risk, bilateral; I10 Essential (primary) hypertension; J44.9 Chronic obstructive pulmonary disease, unspecified; E78.00 Pure hypercholesterolemia, unspecified; K21.9 Gastro-esophageal reflux disease without esophagitis; Z79.51 Long term (current) use of inhaled steroids; Z87.891 Personal history of nicotine dependence; Z79.899 Other long term (current) drug therapy
CPT/HCPCS: 66984; V2632; J2250; J3490 ×4; J0171; J3010; 142

== ENCOUNTER → 2017-08-19 | Outpatient (CLI) | payer MEDICAID ==
--- NOTE | 2017-08-20 11:26 | XCELERA REPORT ---
[address] [address] Lower Extremity Arterial Evaluation Name: PANKAJ SORTO Age: 62 yrs Gender: Male : 1955 Patient Status: Outpatient Patient Location: Study Date: 08/19/2017 01:19 PM Procedure: A color flow and duplex scan of the lower extremity arteries was performed bilaterally with velocity and waveform anaylsis. Ankle brachial indicies performed. Reason For Study: BLE PAIN Ordering Physician: LANDY FONSECA PA-C Performed By: Dimitris Santa Measurements and Calculations Right Left PRODUCT SUPPORT ANALYST PSV 239.9 206.5 cm/sec Prox PFA PSV -297.0 -164.0 cm/sec Prox SFA PSV -364.5 145.4 cm/sec Mid SFA PSV -100.4 -92.1 cm/sec Dist SFA PSV -60.9 -70.3 cm/sec Prox Pop A PSV 55.8 114.7 cm/sec Dist AMELIA PSV 18.3 36.9 cm/sec Prox COMMERCIAL COUNSEL PSV 28.7 cm/sec Dist COMMERCIAL COUNSEL PSV 0.20 33.2 cm/sec Rikki Pedis PSV -65.5 -122.6 cm/sec Right Side Arterial Evaluation 2.4 x 1.9 x 2.3 cm , lucent, non vascular mass in the Popliteal fossa. High velocity and triphasic, broadened waveforms noted in the Common Femoral artery to the Femoral. Biphasic, broadened, normal velocity in the Popliteal. Reduced velocity, Biphasic in the Posterior Tibial, Monophasic in the Anterior Tibial. 20-49 % stenosis at the Aorto Iliac inflow with sequential disease. Ankle Brachial index is 0.8. Left Side Arterial Evaluation Normal velocity and triphasic waveforms noted from the Common Femoral artery to the Popliteal. Biphasic, broadened in the infrageniculate vessels. 20-49 % stenosis at the Infrageniculate level. Ankle Brachial index is 0.8. Interpretation Summary Moderate hemodynamically significant lesions in the right lower extremity only, on duplex imaging, at rest. Moderate hemodynamically significant lesions in the left lower extremity only, on duplex imaging, at rest. Multi level disease on right which may be more severe than suggested by JONAS. Popliteal cyst on right. : LANDY FONSECA PA-C > Panchito Nieves
== END ==
LOC: SP 12:52
PROVIDERS: ATTEND Physician Assistant
DX: M79.604 Pain in right leg (principal); M79.605 Pain in left leg; I70.203 Unspecified atherosclerosis of native arteries of extremities, bilateral legs
CPT/HCPCS: 93925

== ENCOUNTER → 2018-09-29 | Outpatient (CLI) | payer MEDICAID ==
--- NOTE | 2018-09-29 13:45 | RADIOLOGY REPORT (SQ) ---
EXAM DESCRIPTION: U/S RETROPERITON (RENAL/AORTA) COMPLETED DATE/TIME: 09/29/2018 11:47 am REASON FOR STUDY: N18.3 CHRONIC KIDNEY DISEASE, STAGE 3 (MODERATE) N18.3 CHRONIC KIDNEY DISEASE, ST AGE 2 (MODERATE) COMPARISON: None. TECHNIQUE: Dynamic and static grayscale images acquired of the kidneys and bladder and recorded on P ACS. Additional selected color Doppler and spectral images recorded. LIMITATIONS: None. FINDINGS: RIGHT KIDNEY: Normal size, 8.9 cm. Normal echogenicity. No solid or suspicious masses. Se veral small cysts. The largest measures 2.5 cm. No hydronephrosis. No calcifications. LEFT KIDNEY: Normal size, 9.5 cm. Normal echogenicity. No solid or suspicious masses. There are 2 c ysts. The larger measures 3.6 cm. No hydronephrosis. No calcifications. BLADDER: No masses. Ureteral jets are seen. OTHER FINDINGS: Prostate gland measures 4 x 3.8 x 3.3 cm. IMPRESSION: Bilateral renal cysts. No acute finding. Ureteral jets are seen. TECHNICAL DOCUMENTATION: JOB ID: [id number] [employer]- All Rights Reserved Reading location - IP/workstation name: [email or web address]
== END ==
LOC: RAD 10:15
PROVIDERS: ATTEND Internal Medicine Nephrology
DX: N18.3 Chronic kidney disease, stage 3 (moderate) (principal); N28.1 Cyst of kidney, acquired
CPT/HCPCS: 76770

== ENCOUNTER → 2018-11-10 | Outpatient (CLI) | payer OTHER ==
[~2018-11-10] MED LIST changes: +ALBUTEROL SULFATE 0.083% NEB 2.5 MG/3 ML AMPUL NEB ONE; -BESIFLOXACIN HCL 0.6% OPH SUSP 5 ML BOTTLE OS PRN; -CHONDR SU A NA/HYALUR INTRAOC KIT (SURGICARE) ONE; -CYCLOPENTOLATE 0.2%/PHENYLEPHRINE 1% OPH SOLN 2 ML OS PRN; -EPINEPHRINE INJ/PF 1 MG/1 ML AMPULE ONE; -KETOROLAC TROMETHAMINE 0.45% 4 DROP/0.4 ML DROPERETTE OS PRN; -LIDOCAINE 1% INJ-PF (10 MG/ML) 30 ML SDV ONE; -TETRACAINE HCL 0.5% OPH SOLN 2 ML OS PRN; -TROPICAMIDE 1% OPH SOLN 3 ML OS PRN
== END ==
LOC: RT 13:35
DX: J44.9 Chronic obstructive pulmonary disease, unspecified (principal); I12.9 Hypertensive chronic kidney disease with stage 1 through stage 4 chronic kidney disease, or unspecified chronic kidney disease; N18.9 Chronic kidney disease, unspecified
CPT/HCPCS: 94060; 94729